=== PATIENT | male | born 1930 | race Caucasian/White ===

== ENCOUNTER 2018-07-23 11:07 | Inpatient (IN) ==
--- NOTE | 2018-07-23 11:26 | Emergency Department Note ---
ED Disposition Clinical Impression: Muscular deconditioning Disposition: Admitted as Observation Condition on Discharge: Good Referrals: García Carrasquillo MD [Primary Care Provider] - - Critical Care Critical Care Time: No Attestation: On , the high probability of a clinically significant, sudden or life threatening deterioration of the following system(s) required my full and direct attention, intervention and personal management. The time I documented below is in addition to time spent performing reported procedures but includes the following listed in this critical care notation. Medical Decision Making - Medical Records Medical records reviewed: Yes: I reviewed the patient's medical records. - [place] Inquiry Pt receiving controlled substance: No Vital Signs: 07/23/18 11:23 07/23/18 11:44 07/23/18 12:43 Temperature 97.9 F 98.3 F Temperature Source Oral Oral Pulse Rate [Left Radial] 72 61 60 Respiratory Rate 22 16 16 Blood Pressure [Right Arm] 182/84 H 171/69 H 174/65 H Blood Pressure Mean [Right Arm] 116 103 101 Blood Pressure Source [Right Arm] Automatic Cuff Automatic Cuff Automatic Cuff Blood Pressure Position [Right Arm] Sitting Supine Supine 02 Sat by Pulse Oximetry 98 98 94 L Oxygen Delivery Method Room Air Room Air Room Air 07/23/18 13:25 07/23/18 14:00 07/23/18 14:40 Temperature 98.9 F Temperature Source Oral Pulse Rate [Left Radial] 61 57 L 58 L Respiratory Rate 18 14 18 Blood Pressure [Right Arm] 168/70 H 160/64 H 164/64 H Blood Pressure Mean [Right Arm] 102 96 97 Blood Pressure Source [Right Arm] Automatic Cuff Automatic Cuff Blood Pressure Position [Right Arm] Supine Supine 02 Sat by Pulse Oximetry 97 95 95 Oxygen Delivery Method Room Air Room Air Room Air 07/23/18 15:17 07/23/18 15:57 07/23/18 16:00 Temperature Temperature Source Pulse Rate [Left Radial] 55 L 59 L 60 Respiratory Rate 18 16 16 Blood Pressure [Right Arm] 173/71 H 169/69 H 171/76 H Blood Pressure Mean [Right Arm] 105 102 107 Blood Pressure Source [Right Arm] Automatic Cuff Automatic Cuff Automatic Cuff Blood Pressure Position [Right Arm] Supine Supine Supine 02 Sat by Pulse Oximetry 96 95 95 Oxygen Delivery Method Room Air Room Air Room Air 07/23/18 16:30 07/23/18 17:00 Temperature Temperature Source Pulse Rate [Left Radial] 57 L 56 L Respiratory Rate 16 14 Blood Pressure [Right Arm] 174/90 H 167/73 H Blood Pressure Mean [Right Arm] 118 104 Blood Pressure Source [Right Arm] Automatic Cuff Blood Pressure Position [Right Arm] Supine 02 Sat by Pulse Oximetry 96 96 Oxygen Delivery Method Room Air Room Air - Lab Data Lab Results 07/23/18 11:15: WBC 11.4 H, RBC 2.61 L, Hgb 8.1 L, Hct 24.9 L, MCV 95.2 H, MCH 31.2, MCHC 32.8, RDW 15.9, Plt Count 254, MPV 8.1, Neut % (Auto) 88.7 H, Lymph % (Auto) 7.0 L, [place] % (Auto) 3.8, Eos % (Auto) 0.3, Baso % (Auto) 0.3, Neut # (Auto) 10.1 H, Lymph # (Auto) 0.8, [place] # (Auto) 0.4, Eos # (Auto) 0.0, Baso # (Auto) 0.0, Total Counted 100, Neutrophils % (Manual) 92 H, Lymphocytes % (Manual) 6 L, Monocytes % (Manual) 2, Platelet Estimate Normal, Hypochromasia 1+ 07/23/18 11:15: Sodium 137, Potassium 3.5, Chloride 99, Carbon Dioxide 24, Anion Gap 17.5 H, BUN 80 H, Creatinine 3.16 H, Estimated Creat Clear 23, Estimated GFR 19 L*, Est GFR ( Amer) 23 L, Glucose 219 H, Calcium 8.4 L, Total Bilirubin 1.0, AST 23, ALT 24, Alkaline Phosphatase 97, Total Protein 6.9, Albumin 3.0 L, Globulin 3.9 H, Albumin/Globulin Ratio 0.8 L Result diagrams: 07/23/18 11:15 07/23/18 11:15 Orders (Tests/Meds): ORDERS Category Date Time Status Elbow XR left mininum 3 views [XR elbow LT min 3V] Stat Exams 07/23/18 11:30 Taken - Radiology Data #1 Image(s): Elbow, Hand, Pelvis Image Reviewed: Yes I discussed the image results w/the radiologist Medical Decision Narrative: pt unable to use his walker due to deconditioning and general weakness, admit d/w Dr Rizvi, hx chronic anemia and 8.1 hgb unchanged from previous, renal insufficiency also near pt usual General Adult HPI - General Chief complaint: Fall Stated complaint: low blood count Time Seen by Provider: 07/23/18 11:22 Source of Information: Patient, Significant Other - History of Present Illness HPI narrative: pt tripped and fell today at home, superficial skin tear left hand and elbow, no loc, no neck pain, not dizzy, pt denies any pain and refuses pain med, hx anemia and transfusion 2 weeks ago, hgb 8.1 last week, no blood in stool, hx atrial fib, pt progressively more difficulty ambulating and the family does not feel they can manage him at home any longer - Related Data Home Medications Medication Instructions Recorded Confirmed Aspirin [Aspirin 81mg EC Tab] 81 mg PO DAILY 03/20/18 07/23/18 Calcium Polycarbophil 625 mg PO TID 03/20/18 07/23/18 Cholecalciferol (Vitamin D3) 2,000 unit PO DAILY 03/20/18 07/23/18 [Vitamin D3 1,000 Unit Tab] Cyanocobalamin (Vitamin B-12) 100 mcg PO DAILY 03/20/18 07/23/18 [Vitamin B-12] Ferrous Sulfate [Ferrous Sulfate 325 mg PO DAILY 03/20/18 07/23/18 325mg Tablet] Flaxseed Oil 1,000 mg PO DAILY 03/20/18 07/23/18 Fluticasone Propionate [Flonase 2 spr NS BID 03/20/18 07/23/18 50mcg nasal spray 16gm] Gabapentin [Gabapentin 100mg Cap] 200 mg PO HS 03/20/18 07/23/18 Guanfacine HCl 0.5 mg PO DAILY 03/20/18 07/23/18 Hydralazine HCl 50 mg PO Q8 03/20/18 07/23/18 Montelukast Sodium [Montelukast 10 mg PO DAILY 03/20/18 07/23/18 10mg Tab] Multivit-Min/FA/Lycopen/Lutein 1 each PO DAILY 03/20/18 07/23/18 [Centrum Silver Tablet] Pantoprazole Sodium [Protonix 40mg 40 mg PO HS 03/20/18 07/23/18 tablet] Polyethylene Glycol 3350 [Miralax 17 gm PO DAILY 03/20/18 07/23/18 17gm Packet] Rosuvastatin Calcium [Crestor] 5 mg PO HS 03/20/18 07/23/18 Tamsulosin HCl [Flomax 0.4mg 0.4 mg PO DAILY 03/20/18 07/23/18 capsule] Torsemide [Demadex] 20 mg PO DAILY 03/20/18 07/23/18 glipiZIDE [Glipizide ER] 2.5 mg PO DAILY 03/20/18 07/23/18 Allergies Allergy/AdvReac Type Severity Reaction Status Date / Time lisinopril Allergy Swelling Verified 03/20/18 08:44 of Lip/Tongue/Throat [facility] History - Hepatitis A Screen Attestation statement:: This patient has been screened for Hepatitis A risk factors. ROS Obtained: Yes Systems reviewed as appropriate & no additional complaints - Constitutional Constitutional: Denies fever(s) - Eyes Eyes: Denies change in vision - ENT Ears, Nose, Mouth, and Throat: Denies neck pain, Denies nose pain - Cardiovascular Cardiovascular: Denies chest pain - Respiratory Respiratory: No dyspnea - Gastrointestinal Gastrointestingal: Denies: abdominal pain - Musculoskeletal Musculoskeletal: Denies back pain, Denies neck pain, Reports other (ambulates w/ walker) - Integumentary/Breasts Skin/Breast: Reports wounds - Neurologic Neurologic: Denies dizziness, Denies focal weakness, Reports frequent falls, Denies headache(s), Denies syncope Physical Exam - General General appearance: alert, in no apparent distress - Head Head exam: atraumatic - Eye Eye exam: Present: normal appearance, PERRL, EOMI - ENT ENT exam: Present: normal exam, mucous membranes moist - Neck Neck exam: Present: normal inspection, full ROM. Absent: tenderness - Chest Chest inspection: Present: normal inspection - Respiratory Respiratory exam: Present: normal lung sounds bilaterally - Cardiovascular Cardiovascular exam: Present: regular rate, normal rhythm - Abdominal Exam Abdominal exam: Present: soft. Absent: distention, tenderness, rebound - Extremities Exam Extremities exam: Present: other (superficial skin tear left elbow and hand, sen and pulses intact, randy, braces on lower legs) - Back Exam Back exam: Absent: tenderness - Neurological Exam Neurological exam: Present: alert, oriented X3 - Psychiatric Psychiatric exam: Present: normal affect, normal mood - Skin Skin exam: Present: other (skin tears V shape 1 to 2 cm)
[2018-07-23 11:43] LABS: Basophils % 0.3 % (0.1-2.0); Eosinophils % 0.3 % (0.1-12.0); Hematocrit 24.9 % (42.0-52.0); Hemoglobin 8.1 g/dL (14.1-18.0); Lymphocytes # 0.8 K/mm3 (0.7-4.5); Mean Corpuscular HGB Conc 32.8 g/dL (31.8-35.4); Mean Corpuscular Hemoglobin 31.2 pg (27.0-31.2); Mean Corpuscular Volume 95.2 fl (80-94); Mean Platelet Volume 8.1 fl (7.4-10.4); Monocytes # 0.4 K/mm3 (0.1-1.0); Monocytes % 3.8 % (1.7-9.3); Neutrophils # 10.1 K/mm3 (1.8-7.8); Neutrophils % 88.7 % (37.0-80.0); Platelet Count 254 K/mm3 (142-424); Red Blood Count 2.61 M/mm3 (4.60-6.20); Red Cell Distribution Width 15.9 % (11.5-17.5); White Blood Count 11.4 K/mm3 (4.8-10.8)
[2018-07-23 12:06] LABS: Albumin/Globulin Ratio 0.8 (1.1-1.8); Anion Gap 17.5 mEq/L (5-15); Calcium 8.4 mg/dL (8.5-10.1); Globulin 3.9 gm/dl (1.3-3.2); Potassium 3.5 mmoL/L (3.5-5.1); Total Protein,Serum 6.9 gm/dL (6.4-8.2)
[2018-07-23 12:11] LABS: Hypochromasia 1+; Lymphocytes % 6 % (10-50); Monocytes % 2 % (2-9); Neutrophils % 92 % (42-76); Total Cells Counted 100
--- NOTE | 2018-07-24 07:39 | Pharmacy Consult Notes ---
[facility] Pharmacy VTE Monitoring - Patient Demographics Admission date: 07/23/18 Report Date: 07/24/18 Time: 07:38 Allergies/Adverse Reactions: Patient Allergies lisinopril Allergy (Verified 03/20/18 08:44) Swelling of Lip/Tongue/Throat Height: 1.65 m Weight: 94.943 kg Patient Problems: Current Active Problems Muscular deconditioning (Acute) - VTE Risk Labs: VTE Related Lab Results Hgb 8.1 g/dL (14.1-18.0) L 07/23/18 11:15 Hct 24.9 % (42.0-52.0) L 07/23/18 11:15 Plt Count 254 K/mm3 (142-424) 07/23/18 11:15 BUN 80 mg/dL (7-18) H 07/23/18 11:15 Creatinine 3.16 mg/dL (0.70-1.30) H 07/23/18 11:15 Estimated Creat Clear 23 mL/min (50-200) 07/23/18 11:15 VTE Score: 4 VTE Risk Level: Low Risk - Prophylaxis VTE Prophylaxis Ordered?: Yes Types of VTE Prophylaxis: TEDS Knee High Location of Applied Device: Bilateral Lower Extremeties - VTE Diagnosis Confirmed Treatment or plan recommended: Continue Current Treatment
--- NOTE | 2018-07-24 08:30 | History & Physical Report ---
*Admission Date: 07/23/18 *Chief complaint: weakness *History of present illness: Mr. Manuel is an 88-year-old male with a history of hypertension, diabetes, hyperlipidemia, intermittent A. fib, GERD, and gastroparesis. He was just recently discharged a few weeks ago from [facility] after an admission for a GI bleed. He states he had an EGD and a colonoscopy and received some blood transfusions at that time. After being discharged, he went to rehab for a week and then went home. He states he was doing well up until July 20 when he began noticing dark stools again. He became very weak and was seen in the office of [facility] on 07/[facility]/18 after a fall at home due to weakness. The patient's hemoglobin was 7.6 in the office and his white blood cell count was elevated. Dr. Carrasquillo spoke with Dr. French who felt the patient needed to go to [facility] for admission. The patient said he went to [facility] emergency room and was told he had pneumonia and was sent home with antibiotics. He states he never received any blood. His weakness continued over the next few days as did his dark stools. He fell again at home yesterday and EMS had to come to his home to get him out of the floor. His home health nurse came to see him after the fall and felt he needed to be taken to the emergency room. His daughter brought him to the ER at [facility] and he was admitted for further evaluation and treatment. [facility] History Medical History: Reports:: Atrial Fibrillation, BPH, Congestive Heart Failure, Diabetes Mellitus Type 2 (with gastroparesis), Gastroesophageal Reflux Disease(GERD), Gastrointestinal Bleed, Hyperlipidemia, Hypertension Denies:: Cancer, Diabetes Mellitus Type 1, Internal Pacemaker, MRSA *Have you ever received a pneumonia vaccine?: Yes *Have you received a flu vaccine this season?: Yes Other Medical History: Reports: Anemia Laterality Cases: Left: Total Knee Replacement, Bilateral: Tonsillectomy Other Surgeries: Yes: Cholecystectomy, Colonoscopy, EGD. No: Pacemaker Amputation: No Fractures: No - *Social History Educational Level: Completed High School Smoking Status: Former smoker # Packs/Day (cigarettes): 1 Alcohol Intake: never *Occupational Status:: other Household Members: children *Travel in the last 8 weeks: None - Psychiatric History Expresses thoughts of harming self/others: None Suicide Plan Description: No Plan Family Hx:: Hypertension Review of Systems - Constitutional Reports lack of energy, Reports weakness, Denies body ache(s), Denies fever(s) - Eyes Denies blurry vision, Denies double vision - ENT Denies nasal congestion, Denies sore throat - *Cardiovascular Reports leg swelling, Denies chest pain, Denies rapid, pounding, or irregular heartbeat - *Respiratory Denies cough, Denies shortness of breath - *Gastrointestinal Reports black, tarry stools, Denies abdominal pain, Denies coffee ground vomit, Denies loose stools, Denies nausea, Denies vomiting - *Genitourinary Reports painful urination, Denies difficulty urinating - *Musculoskeletal Reports muscle weakness, Denies joint pain - *Neurologic Reports frequent falls, Reports weakness, Denies dizziness, Denies localized weakness, Denies headache(s), Denies fainting Meds Home Medications Medication Instructions Recorded Confirmed Type Aspirin [Aspirin 81mg EC Tab] 81 mg PO DAILY 03/20/18 07/24/18 History Cholecalciferol (Vitamin D3) 2,000 unit PO DAILY 03/20/18 07/24/18 History [Vitamin D3 1,000 Unit Tab] Cyanocobalamin (Vitamin B-12) 100 mcg PO DAILY 03/20/18 07/24/18 History [Vitamin B-12] Ferrous Sulfate [Ferrous Sulfate 325 mg PO DAILY 03/20/18 07/24/18 History 325mg Tablet] Flaxseed Oil 1,000 mg PO DAILY 03/20/18 07/24/18 History Fluticasone Propionate [Flonase 2 spr NS BID 03/20/18 07/24/18 History 50mcg nasal spray 16gm] Gabapentin [Gabapentin 100mg Cap] 200 mg PO HS 03/20/18 07/24/18 History Guanfacine HCl 0.5 mg PO DAILY 03/20/18 07/24/18 History Hydralazine HCl 50 mg PO Q8 03/20/18 07/24/18 History Multivit-Min/FA/Lycopen/Lutein 1 each PO DAILY 03/20/18 07/24/18 History [Centrum Silver Tablet] Pantoprazole Sodium [Protonix 40mg 40 mg PO HS 03/20/18 07/24/18 History tablet] Polyethylene Glycol 3350 [Miralax 17 gm PO DAILY 03/20/18 07/24/18 History 17gm Packet] Rosuvastatin Calcium [Crestor] 5 mg PO HS 03/20/18 07/24/18 History Tamsulosin HCl [Flomax 0.4mg 0.4 mg PO DAILY 03/20/18 07/24/18 History capsule] Torsemide [Demadex] 20 mg PO DAILY 03/20/18 07/24/18 History glipiZIDE [Glipizide ER] 2.5 mg PO DAILY 03/20/18 07/24/18 History Allergies Allergy/AdvReac Type Severity Reaction Status Date / Time lisinopril Allergy Swelling Verified 03/20/18 08:44 of Lip/Tongue/Throat Exam Vital signs and Labs for Last 24 Hours: Temp Pulse Resp BP Pulse Ox 98.6 F 60 18 178/71 H 96 07/24/18 08:00 07/24/18 08:00 07/24/18 08:00 07/24/18 08:00 07/24/18 08:00 Laboratory Results - last 24 hr 07/23/18 11:15: WBC 11.4 H, RBC 2.61 L, Hgb 8.1 L, Hct 24.9 L, MCV 95.2 H, MCH 31.2, MCHC 32.8, RDW 15.9, Plt Count 254, MPV 8.1, Neut % (Auto) 88.7 H, Lymph % (Auto) 7.0 L, [place] % (Auto) 3.8, Eos % (Auto) 0.3, Baso % (Auto) 0.3, Neut # (Auto) 10.1 H, Lymph # (Auto) 0.8, [place] # (Auto) 0.4, Eos # (Auto) 0.0, Baso # (Auto) 0.0, Total Counted 100, Neutrophils % (Manual) 92 H, Lymphocytes % (Manual) 6 L, Monocytes % (Manual) 2, Platelet Estimate Normal, Hypochromasia 1+ 07/23/18 11:15: Sodium 137, Potassium 3.5, Chloride 99, Carbon Dioxide 24, Anion Gap 17.5 H, BUN 80 H, Creatinine 3.16 H, Estimated Creat Clear 23, Estimated GFR 19 L*, Est GFR ( Amer) 23 L, Glucose 219 H, Calcium 8.4 L, Total Bilirubin 1.0, AST 23, ALT 24, Alkaline Phosphatase 97, Total Protein 6.9, Albumin 3.0 L, Globulin 3.9 H, Albumin/Globulin Ratio 0.8 L 07/23/18 21:11: POC Glucose 195 H 07/24/18 06:55: POC Glucose 170 H I & O for Last 24 hours: Intake & Output 07/21/18 07/22/18 07/23/18 07/24/18 11:59 11:59 11:59 11:59 Intake Total 760 / 760 Output Total 350 / 350 Balance 410 / 410 Weight 210 lb 209 lb 5 oz - Constitutional no acute distress - *Routine HEENT Exam Head: Present: normocephalic Eye: Present: EOMI, PERRL ENT: Present: mucous membranes dry - *Routine Neck Exam Present: supple. Absent: lymphadenopathy - *Routine Respiratory Exam Present: decreased breath sounds. Absent: rhonchi, wheezes - *Routine Cardiovascular Exam Present: RRR - *Routine Abdominal Exam Present: soft, normoactive bowel sounds. Absent: tenderness - *Routine Extremities Exam Present: edema (2+ bilateral LE edema). Absent: cyanosis, clubbing - *Routine Skin Exam Present: warm, ecchymosis (Multiple on the arms and legs from recent fall). Absent: rash - *Routine Neurological Exam Present: alert, oriented X3 H&P: Result - Impressions Left hand x-ray No good evidence of acute fracture at the hand itself. Arthritic changes multiple regions as detailed intact. (Note-Because of flexion on frontal and oblique views, the Distal Second and Third Fingers not optimally visualized & not well seen. If The patient has focal tenderness and pain in at the distal index and long finger would suggest coned down detail views of these specific fingers) Pelvis xray Osseous pelvis intact no fracture. No acute findings. CXR Left lower lobe pneumonia airspace disease most evident medial left lung base/retrocardiac region Right lung base with minimal atelectasis & possible wispy infiltrate Cardiomegaly. Assessment and Plan (1) Melena Current visit: Yes Status: Acute Category: Medical Code(s): K92.1 - Melena (2) Anemia Current visit: Yes Status: Acute Category: Medical Code(s): D64.9 - Anemia, unspecified (3) Pneumonia Current visit: Yes Status: Acute Category: Medical Code(s): J18.9 - Pneumonia, unspecified organism (4) History of GI bleed Current visit: Yes Status: Chronic Category: Medical Code(s): Z87.19 - Personal history of other diseases of the digestive system (5) Chronic renal impairment, stage 4 (severe) Current visit: Yes Status: Chronic Category: Medical Code(s): N18.4 - Chronic kidney disease, stage 4 (severe) (6) Hypertension Current visit: Yes Status: Chronic Category: Medical Code(s): I10 - Essential (primary) hypertension (7) Hyperlipidemia Current visit: Yes Status: Chronic Category: Medical Code(s): E78.5 - Hyperlipidemia, unspecified (8) Type 2 diabetes mellitus Current visit: Yes Status: Chronic Category: Medical Code(s): E11.9 - Type 2 diabetes mellitus without complications - Assessment and plan all Dx Assessment and Plan for all problems:: Will consult surgery for possible recurrent GI bleed. Patient will need a blood transfusion. He will also need to be started on antibiotics for his pneumonia. We will restart some of his home medications.
--- NOTE | 2018-07-24 10:30 | Consult Report ---
*Admission Date: 07/23/18 *Chief complaint: Gastrointestinal hemorrhage *History of present illness: This is an 88-year-old gentleman with fairly significant anemia over the past few months who has been recently diagnosed with a gastrointestinal hemorrhage after being evaluated at outside facility. He continues to be fairly anemic and "weak". He does report multiple blood transfusions over the past 6 months; however, he states that he only received 2 units during his recent admission at an outside facility. Earlier this month his hemoglobin was found to be 7.6 and he was reevaluated at an outside facility but did not apparently receive blood transfusions. Please see forwarded copy of HPI from admission H&P below. Mr. Manuel is an 88-year-old male with a history of hypertension, diabetes, hyperl ipidemia, intermittent A. fib, GERD, and gastroparesis. He was just recently discharged a few weeks ago from [facility] after an admission for a GI bleed. He states he had an EGD and a colonoscopy and received some blood transfusions at that time. After being discharged, he went to rehab for a week and then went home. He states he was doing well up until July 20 when he began noticing dark stools again. He became very weak and was seen in the office of [facility] on 07/21/18 after a fall at home due to weakness. The patient's hemoglobin was 7.6 in the office and his white blood cell count was elevated. Dr. Carrasquillo spoke with Dr. French who felt the patient needed to go to [facility] for admission. The patient said he went to [facility] emergency room and was told he had pneumonia and was sent home with antibiotics. He states he never received any blood. His weakness continued over the next few days as did his dark stools. He fell again at home yesterday and EMS had to come to his home to get him out of the floor. His home health nurse came to see him after the fall and felt he needed to be taken to the emergency room. His daughter brought him to the ER at [facility] and he was admitted for further evaluation and treatment. Review of Systems - Constitutional Denies chills - Eyes Denies change in vision - ENT Denies bleeding gums - *Cardiovascular Denies chest pain - *Respiratory Denies cough - *Gastrointestinal Denies abdominal pain - *Neurologic Reports frequent falls, Reports weakness, Denies dizziness, Denies localized weakness, Denies headache(s), Denies fainting [facility] History Medical History: Reports:: Atrial Fibrillation, BPH, Congestive Heart Failure, Diabetes Mellitus Type 2 (with gastroparesis), Gastroesophageal Reflux Disease(GERD), Gastrointestinal Bleed, Hyperlipidemia, Hypertension Denies:: Cancer, Diabetes Mellitus Type 1, Internal Pacemaker, MRSA *Have you ever received a pneumonia vaccine?: Yes *Have you received a flu vaccine this season?: Yes Other Medical History: Reports: Anemia Laterality Cases: Left: Total Knee Replacement, Bilateral: Tonsillectomy Other Surgeries: Yes: Cholecystectomy, Colonoscopy, EGD. No: Pacemaker Amputation: No Fractures: No - *Social History Educational Level: Completed High School Smoking Status: Former smoker # Packs/Day (cigarettes): 1 Alcohol Intake: never *Occupational Status:: other Household Members: children *Travel in the last 8 weeks: None - Psychiatric History Expresses thoughts of harming self/others: None Suicide Plan Description: No Plan Family Hx:: Hypertension Meds Home Medications Medication Instructions Recorded Confirmed Type Aspirin [Aspirin 81mg EC Tab] 81 mg PO DAILY 03/20/18 07/24/18 History Cholecalciferol (Vitamin D3) 2,000 unit PO DAILY 03/20/18 07/24/18 History [Vitamin D3 1,000 Unit Tab] Cyanocobalamin (Vitamin B-12) 100 mcg PO DAILY 03/20/18 07/24/18 History [Vitamin B-12] Ferrous Sulfate [Ferrous Sulfate 325 mg PO DAILY 03/20/18 07/24/18 History 325mg Tablet] Flaxseed Oil 1,000 mg PO DAILY 03/20/18 07/24/18 History Fluticasone Propionate [Flonase 2 spr NS BID 03/20/18 07/24/18 History 50mcg nasal spray 16gm] Gabapentin [Gabapentin 100mg Cap] 200 mg PO HS 03/20/18 07/24/18 History Guanfacine HCl 0.5 mg PO DAILY 03/20/18 07/24/18 History Hydralazine HCl 50 mg PO Q8 03/20/18 07/24/18 History Multivit-Min/FA/Lycopen/Lutein 1 each PO DAILY 03/20/18 07/24/18 History [Centrum Silver Tablet] Pantoprazole Sodium [Protonix 40mg 40 mg PO HS 03/20/18 07/24/18 History tablet] Polyethylene Glycol 3350 [Miralax 17 gm PO DAILY 03/20/18 07/24/18 History 17gm Packet] Rosuvastatin Calcium [Crestor] 5 mg PO HS 03/20/18 07/24/18 History Tamsulosin HCl [Flomax 0.4mg 0.4 mg PO DAILY 03/20/18 07/24/18 History capsule] Torsemide [Demadex] 20 mg PO DAILY 03/20/18 07/24/18 History glipiZIDE [Glipizide ER] 2.5 mg PO DAILY 03/20/18 07/24/18 History Allergies Allergy/AdvReac Type Severity Reaction Status Date / Time lisinopril Allergy Swelling Verified 03/20/18 08:44 of Lip/Tongue/Throat Exam Vital signs and Labs for Last 24 Hours: Temp Pulse Resp BP Pulse Ox 98.6 F 60 18 178/71 H 96 07/24/18 08:00 07/24/18 08:00 07/24/18 08:00 07/24/18 08:00 07/24/18 08:00 Laboratory Results - last 24 hr 07/23/18 11:15: WBC 11.4 H, RBC 2.61 L, Hgb 8.1 L, Hct 24.9 L, MCV 95.2 H, MCH 31.2, MCHC 32.8, RDW 15.9, Plt Count 254, MPV 8.1, Neut % (Auto) 88.7 H, Lymph % (Auto) 7.0 L, [place] % (Auto) 3.8, Eos % (Auto) 0.3, Baso % (Auto) 0.3, Neut # (Auto) 10.1 H, Lymph # (Auto) 0.8, [place] # (Auto) 0.4, Eos # (Auto) 0.0, Baso # (Auto) 0.0, Total Counted 100, Neutrophils % (Manual) 92 H, Lymphocytes % (Manual) 6 L, Monocytes % (Manual) 2, Platelet Estimate Normal, Hypochromasia 1+ 07/23/18 11:15: Sodium 137, Potassium 3.5, Chloride 99, Carbon Dioxide 24, Anion Gap 17.5 H, BUN 80 H, Creatinine 3.16 H, Estimated Creat Clear 23, Estimated GFR 19 L*, Est GFR ( Amer) 23 L, Glucose 219 H, Calcium 8.4 L, Total Bi lirubin 1.0, AST 23, ALT 24, Alkaline Phosphatase 97, Total Protein 6.9, Albumin 3.0 L, Globulin 3.9 H, Albumin/Globulin Ratio 0.8 L 07/23/18 21:11: POC Glucose 195 H 07/24/18 06:55: POC Glucose 170 H 07/24/18 09:19: Blood Type O Positive, Antibody Screen Negative, Crossmatch (AHG) See Detail I & O for Last 24 hours: Intake & Output 07/21/18 07/22/18 07/23/18 07/24/18 11:59 11:59 11:59 11:59 Intake Total 760 / 760 Output Total 350 / 350 Balance 410 / 410 Weight 210 lb 209 lb 5 oz - Constitutional no acute distress - *Routine Respiratory Exam Absent: respiratory distress - *Routine Cardiovascular Exam Present: irregular rhythm - *Routine Abdominal Exam Present: soft Results - Labs 07/23/18 11:15 07/23/18 11:15 Laboratory Results - last 24 hr 07/23/18 11:15: WBC 11.4 H, RBC 2.61 L, Hgb 8.1 L, Hct 24.9 L, MCV 95.2 H, MCH 31.2, MCHC 32.8, RDW 15.9, Plt Count 254, MPV 8.1, Neut % (Auto) 88.7 H, Lymph % (Auto) 7.0 L, [place] % (Auto) 3.8, Eos % (Auto) 0.3, Baso % (Auto) 0.3, Neut # (Auto) 10.1 H, Lymph # (Auto) 0.8, [place] # (Auto) 0.4, Eos # (Auto) 0.0, Baso # (Auto) 0.0, Total Counted 100, Neutrophils % (Manual) 92 H, Lymphocytes % (Manual) 6 L, Monocytes % (Manual) 2, Platelet Estimate Normal, Hypochromasia 1+ 07/23/18 11:15: Sodium 137, Potassium 3.5, Chloride 99, Carbon Dioxide 24, Anion Gap 17.5 H, BUN 80 H, Creatinine 3.16 H, Estimated Creat Clear 23, Estimated GFR 19 L*, Est GFR ( Amer) 23 L, Glucose 219 H, Calcium 8.4 L, Total Bilirubin 1.0, AST 23, ALT 24, Alkaline Phosphatase 97, Total Protein 6.9, Albumin 3.0 L, Globulin 3.9 H, Albumin/Globulin Ratio 0.8 L 07/23/18 21:11: POC Glucose 195 H 07/24/18 06:55: POC Glucose 170 H 07/24/18 09:19: Blood Type O Positive, Antibody Screen Negative, Crossmatch (AHG) See Detail Assessment and Plan (1) Melena Current visit: Yes Status: Acute Category: Medical Code(s): K92.1 - Melena (2) Anemia Current visit: Yes Status: Acute Category: Medical Code(s): D64.9 - Anemia, unspecified Per patient and family report...he was treated for colonic bleeding at an outside facility. His hemoglobin is stable when compared to last week (uncertain if he continues to have any blood loss from this recently treated site or additional site). Clear liquids for now (may require urgent intervention) Transfusion as per primary service Serial hemoglobin/hematocrit Hold off on repeat endoscopy for now Unless urgently needed...defer decision of any future EGD/Colonoscopy to his current endoscopist (3) Pneumonia Current visit: Yes Status: Acute Category: Medical Code(s): J18.9 - Pneumonia, unspecified organism (4) History of GI bleed Current visit: Yes Status: Chronic Category: Medical Code(s): Z87.19 - Pe rsonal history of other diseases of the digestive system (5) Chronic renal impairment, stage 4 (severe) Current visit: Yes Status: Chronic Category: Medical Code(s): N18.4 - Chr onic kidney disease, stage 4 (severe) (6) Hypertension Current visit: Yes Status: Chronic Category: Medical Code(s): I10 - Essential (primary) hypertension (7) Hyperlipidemia Current visit: Yes Status: Chronic Category: Medical Code(s): E78.5 - Hyperlipidemia, unspecified (8) Type 2 diabetes mellitus Current visit: Yes Status: Chronic Category: Medical Code(s): E11.9 - Type 2 diabetes mellitus without complications
[2018-07-24 17:16] LABS: Hematocrit 29.2 % (42.0-52.0); Hemoglobin 9.8 g/dL (14.1-18.0)
[2018-07-25 06:52] LABS: Basophils % 0.4 % (0.1-2.0); Eosinophils # 0.1 K/mm3 (0.0-0.4); Eosinophils % 1.4 % (0.1-12.0); Hematocrit 28.9 % (42.0-52.0); Hemoglobin 9.6 g/dL (14.1-18.0); Lymphocytes # 1.2 K/mm3 (0.7-4.5); Lymphocytes % 15.2 % (10-50); Mean Corpuscular HGB Conc 33.1 g/dL (31.8-35.4); Mean Corpuscular Hemoglobin 30.2 pg (27.0-31.2); Mean Corpuscular Volume 91.3 fl (80-94); Monocytes # 0.4 K/mm3 (0.1-1.0); Monocytes % 5.4 % (1.7-9.3); Neutrophils # 6.3 K/mm3 (1.8-7.8); Neutrophils % 77.7 % (37.0-80.0); Platelet Count 206 K/mm3 (142-424); Red Blood Count 3.17 M/mm3 (4.60-6.20); White Blood Count 8.1 K/mm3 (4.8-10.8)
[2018-07-25 07:07] LABS: Anion Gap 15.4 mEq/L (5-15); Calcium 8.3 mg/dL (8.5-10.1); Potassium 3.4 mmoL/L (3.5-5.1)
--- NOTE | 2018-07-25 09:22 | Progress Note ---
Subjective Patient reports: feels better (resting) Exam Vital signs and Labs for Last 24 Hours: Temp Pulse Resp BP Pulse Ox 98.3 F 62 16 176/80 H 95 07/25/18 08:00 07/25/18 08:00 07/25/18 08:00 07/25/18 08:00 07/25/18 08:00 Laboratory Results - last 24 hr 07/24/18 09:19: Blood Type O Positive, Antibody Screen Negative, Crossmatch (AHG) See Detail 07/24/18 12:19: POC Glucose 186 H 07/24/18 17:01: POC Glucose 187 H 07/24/18 17:08: Hgb 9.8 L, Hct 29.2 L 07/24/18 20:48: POC Glucose 191 H 07/25/18 06:09: POC Glucose 171 H 07/25/18 06:29: WBC 8.1 D, RBC 3.17 L, Hgb 9.6 L, Hct 28.9 L, MCV 91.3, MCH 30.2, MCHC 33.1, RDW 17.0, Plt Count 206, MPV 8.0, Neut % (Auto) 77.7, Lymph % (Auto) 15.2, [place] % (Auto) 5.4, Eos % (Auto) 1.4, Baso % (Auto) 0.4, Neut # (Auto) 6.3, Lymph # (Auto) 1.2, [place] # (Auto) 0.4, Eos # (Auto) 0.1, Baso # (Auto) 0.0 07/25/18 06:29: Sodium 141, Potassium 3.4 L, Chloride 103, Carbon Dioxide 26, Anion Gap 15.4 H, BUN 72 H, Creatinine 2.92 H, Estimated Creat Clear 24, Estimated GFR 21 L, Est GFR ( Amer) 25 L, Glucose 157 H, Calcium 8.3 L I & O for Last 24 hours: Intake & Output 07/22/18 07/23/18 07/24/18 07/25/18 11:59 11:59 11:59 11:59 Intake Total 760 / 760 3909 / 3909 Output Total 350 / 350 200 / 200 Balance 410 / 410 3709 / 3709 Weight 210 lb 209 lb 5 oz 209 lb 5.016 oz - Constitutional no acute distress - *Routine Respiratory Exam Absent: respiratory distress - *Routine Abdominal Exam Present: soft. Absent: tenderness Progress Note: A&P (1) Melena Status: Acute Current Visit: Yes (2) Anemia Status: Acute Assessment and plan: No definitive sign of ongoing hemorrhage. Fair response to 2 unit blood transfusion (slight declining hemoglobin/hematocrit this morning likely somewhat delusional). Continue management as per primary service. Likely discharge home soon with cl ose outpatient follow-up. Current Visit: Yes (3) Pneumonia Status: Acute Current Visit: Yes (4) History of GI bleed Status: Chronic Current Visit: Yes (5) Chronic renal impairment, stage 4 (severe) Status: Chronic Current Visit: Yes (6) Hypertension Status: Chronic Current Visit: Yes (7) Hyperlipidemia Status: Chronic Current Visit: Yes (8) Type 2 diabetes mellitus Status: Chronic Current Visit: Yes
--- NOTE | 2018-07-25 10:20 | Progress Note ---
Internal Medicine - PN: Subj *Date: 07/25/18 *Time: 10:17 Interval history: The patient is resting quite comfortably and is in no distress. He says he slept well last night. He is not short of breath. He is not coughing. Exam Vital signs and Labs for Last 24 Hours: Temp Pulse Resp BP Pulse Ox 98.3 F 62 16 176/80 H 95 07/25/18 08:00 07/25/18 08:00 07/25/18 08:00 07/25/18 08:00 07/25/18 08:00 Laboratory Results - last 24 hr 07/24/18 09:19: Blood Type O Positive, Antibody Screen Negative, Crossmatch (AHG) See Detail 07/24/18 12:19: POC Glucose 186 H 07/24/18 17:01: POC Glucose 187 H 07/24/18 17:08: Hgb 9.8 L, Hct 29.2 L 07/24/18 20:48: POC Glucose 191 H 07/25/18 06:09: POC Glucose 171 H 07/25/18 06:29: WBC 8.1 D, RBC 3.17 L, Hgb 9.6 L, Hct 28.9 L, MCV 91.3, MCH 30.2, MCHC 33.1, RDW 17.0, Plt Count 206, MPV 8.0, Neut % (Auto) 77.7, Lymph % (Auto) 15.2, [place] % (Auto) 5.4, Eos % (Auto) 1.4, Baso % (Auto) 0.4, Neut # (Auto) 6.3, Lymph # (Auto) 1.2, [place] # (Auto) 0.4, Eos # (Auto) 0.1, Baso # (Auto) 0.0 07/25/18 06:29: Sodium 141, Potassium 3.4 L, Chloride 103, Carbon Dioxide 26, Anion Gap 15.4 H, BUN 72 H, Creatinine 2.92 H, Estimated Creat Clear 24, Estimated GFR 21 L, Est GFR ( Amer) 25 L, Glucose 157 H, Calcium 8.3 L Laboratory Tests 07/23/18 07/23/18 07/24/18 11:15 11:15 17:08 WBC 11.4 H Hgb 8.1 L 9.8 L Potassium 3.5 07/25/18 07/25/18 06:29 06:29 WBC 8.1 D Hgb 9.6 L Potassium 3.4 L I & O for Last 24 hours: Intake & Output 07/22/18 07/23/18 07/24/18 07/25/18 11:59 11:59 11:59 11:59 Intake Total 760 / 760 3909 / 3909 Output Total 350 / 350 200 / 200 Balance 410 / 410 3709 / 3709 Weight 210 lb 209 lb 5 oz 209 lb 5.016 oz - Constitutional no acute distress - *Routine Respiratory Exam Present: decreased breath sounds. Absent: respiratory distress - *Routine Cardiovascular Exam Present: RRR - *Routine Extremities Exam Present: edema (2+) - *Routine Neurological Exam Present: alert, oriented X3 Assessment and Plan (1) Melena Current visit: Yes Status: Acute Category: Medical Code(s): K92.1 - Melena (2) Anemia Current visit: Yes Status: Acute Category: Medical Code(s): D64.9 - Anemia, unspecified (3) Pneumonia Current visit: Yes Status: Acute Category: Medical Code(s): J18.9 - Pneumonia, unspecified organism (4) History of GI bleed Current visit: Yes Status: Chronic Category: Medical Code(s): Z87.19 - Personal history of other diseases of the digestive system (5) Chronic renal impairment, stage 4 (severe) Current visit: Yes Status: Chronic Category: Medical Code(s): N18.4 - Chronic kidney disease, stage 4 (severe) (6) Hypertension Current visit: Yes Status: Chronic Category: Medical Code(s): I10 - Essential (primary) hypertension (7) Hyperlipidemia Current visit: Yes Status: Chronic Category: Medical Code(s): E78.5 - Hyperlipidemia, unspecified (8) Type 2 diabetes mellitus Current visit: Yes Status: Chronic Category: Medical Code(s): E11.9 - Type 2 diabetes mellitus without complications - Assessment and plan all Dx Assessment and Plan for all problems:: We will continue present regimen. I have discussed the case today with Dr. Wu. It is reassuring that he has had recent endoscopy. The bleeding is probably more related to the blood thinner.
[2018-07-26 06:33] LABS: Basophils # 0.1 K/mm3 (0-0.2); Basophils % 0.6 % (0.1-2.0); Eosinophils # 0.3 K/mm3 (0.0-0.4); Eosinophils % 3.6 % (0.1-12.0); Hemoglobin 9.3 g/dL (14.1-18.0); Lymphocytes # 1.1 K/mm3 (0.7-4.5); Lymphocytes % 14.7 % (10-50); Mean Corpuscular HGB Conc 33.1 g/dL (31.8-35.4); Mean Corpuscular Hemoglobin 30.2 pg (27.0-31.2); Mean Corpuscular Volume 91.2 fl (80-94); Monocytes # 0.4 K/mm3 (0.1-1.0); Monocytes % 4.8 % (1.7-9.3); Neutrophils # 5.6 K/mm3 (1.8-7.8); Neutrophils % 76.3 % (37.0-80.0); Platelet Count 186 K/mm3 (142-424); Red Blood Count 3.09 M/mm3 (4.60-6.20); Red Cell Distribution Width 16.9 % (11.5-17.5); White Blood Count 7.4 K/mm3 (4.8-10.8)
[2018-07-26 06:34] LABS: Hematocrit 28.2 % (42.0-52.0)
[2018-07-26 06:40] LABS: Anion Gap 15.7 mEq/L (5-15); Calcium 8.3 mg/dL (8.5-10.1); Potassium 3.7 mmoL/L (3.5-5.1)
--- NOTE | 2018-07-26 09:23 | Progress Note ---
Subjective Patient reports: no new complaints (BMs "fairly normal" per NSG) Exam Vital signs and Labs for Last 24 Hours: Temp Pulse Resp BP Pulse Ox 98.0 F 71 16 181/76 H 95 07/26/18 08:00 07/26/18 08:00 07/26/18 08:00 07/26/18 08:00 07/26/18 08:00 Laboratory Results - last 24 hr 07/25/18 11:39: POC Glucose 206 H 07/25/18 16:58: POC Glucose 191 H 07/25/18 20:12: POC Glucose 200 H 07/26/18 05:53: POC Glucose 144 H 07/26/18 06:26: WBC 7.4, RBC 3.09 L, Hgb 9.3 L, Hct 28.2 L, MCV 91.2, MCH 30.2, MCHC 33.1, RDW 16.9, Plt Count 186, MPV 9.0, Neut % (Auto) 76.3, Lymph % (Auto) 14.7, [place] % (Auto) 4.8, Eos % (Auto) 3.6, Baso % (Auto) 0.6, Neut # (Auto) 5.6, Lymph # (Auto) 1.1, [place] # (Auto) 0.4, Eos # (Auto) 0.3, Baso # (Auto) 0.1 07/26/18 06:26: Sodium 140, Potassium 3.7, Chloride 104, Carbon Dioxide 24, Anion Gap 15.7 H, BUN 64 H, Creatinine 2.58 H, Estimated Creat Clear 28, Estimated GFR 24 L, Est GFR ( Amer) 29 L, Glucose 150 H, Calcium 8.3 L I & O for Last 24 hours: Intake & Output 07/23/18 07/24/18 07/25/18 07/26/18 11:59 11:59 11:59 11:59 Intake Total 760 / 760 3909 / 3909 3039 / 3039 Output Total 350 / 350 200 / 200 Balance 410 / 410 3709 / 3709 3039 / 3039 Weight 210 lb 209 lb 5 oz 209 lb 5.016 oz - Constitutional no acute distress - *Routine Abdominal Exam Present: soft. Absent: tenderness Progress Note: A&P (1) Melena Status: Acute Current Visit: Yes (2) Anemia Status: Acute Current Visit: Yes (3) Pneumonia Status: Acute Current Visit: Yes (4) History of GI bleed Status: Chronic Current Visit: Yes (5) Chronic renal impairment, stage 4 (severe) Status: Chronic Current Visit: Yes (6) Hypertension Status: Chronic Current Visit: Yes (7) Hyperlipidemia Status: Chronic Current Visit: Yes (8) Type 2 diabetes mellitus Status: Chronic Current Visit: Yes (9) Arteriovenous malformation of colon with hemorrhage Status: Acute Assessment and plan: No sign of definite ongoing blood loss. Recent colonoscopy (x2) revealed AVMs of the right colon and some colon polyps. A combination of clip placement and argon plasma coagulation utilized for hemostasis. Recommendations as per the endoscopist included evaluation by interventional radiology if recurrent bleeding noted. Slowly advance diet No need for acute intervention Consider immediate transfer to facility with interventional radiology capabilities for hemostasis if recurrent bleeding noted Current Visit: Yes
--- NOTE | 2018-07-26 16:02 | Progress Note ---
Internal Medicine - PN: Subj *Date: 07/26/18 *Time: 16:00 Interval history: He seems quite good today though the nurse has reported increased somnolence. At the time I see him he is quite alert and talking with his daughter. She reports that he gets short of breath with exertion and has some wheezing. He is in no acute distress at time of exam Exam Vital signs and Labs for Last 24 Hours: Temp Pulse Resp BP Pulse Ox 97.8 F 60 17 155/77 H 97 07/26/18 12:00 07/26/18 12:00 07/26/18 12:00 07/26/18 12:00 07/26/18 12:00 Laboratory Results - last 24 hr 07/25/18 11:39: POC Glucose 206 H 07/25/18 16:58: POC Glucose 191 H 07/25/18 20:12: POC Glucose 200 H 07/26/18 05:53: POC Glucose 144 H 07/26/18 06:26: WBC 7.4, RBC 3.09 L, Hgb 9.3 L, Hct 28.2 L, MCV 91.2, MCH 30.2, MCHC 33.1, RDW 16.9, Plt Count 186, MPV 9.0, Neut % (Auto) 76.3, Lymph % (Auto) 14.7, [place] % (Auto) 4.8, Eos % (Auto) 3.6, Baso % (Auto) 0.6, Neut # (Auto) 5.6, Lymph # (Auto) 1.1, [place] # (Auto) 0.4, Eos # (Auto) 0.3, Baso # (Auto) 0.1 07/26/18 06:26: Sodium 140, Potassium 3.7, Chloride 104, Carbon Dioxide 24, Anion Gap 15.7 H, BUN 64 H, Creatinine 2.58 H, Estimated Creat Clear 28, Estimated GFR 24 L, Est GFR ( Amer) 29 L, Glucose 150 H, Calcium 8.3 L 07/26/18 11:39: POC Glucose 201 H I & O for Last 24 hours: Intake & Output 07/24/18 07/25/18 07/26/18 07/27/18 11:59 11:59 11:59 11:59 Intake Total 760 / 760 3909 / 3909 3039 / 3039 1020 / 1020 Output Total 350 / 350 200 / 200 Balance 410 / 410 3709 / 3709 303 / 303 1020 / 1020 Weight 209 lb 5 oz 209 lb 5.016 oz - Constitutional no acute distress - *Routine HEENT Exam Head: Present: normocephalic Eye: Present: PERRL ENT: Present: mucous membranes moist - *Routine Respiratory Exam Present: decreased breath sounds, rhonchi (Right base) - *Routine Cardiovascular Exam Present: irregularly irregular - *Routine Abdominal Exam Present: soft. Absent: tenderness - *Routine Extremities Exam Absent: edema (SAVAGE stockings) - *Routine Neurological Exam Present: alert, oriented X3 Assessment and Plan (1) Melena Current visit: Yes Status: Acute Category: Medical Code(s): K92.1 - Melena (2) Anemia Current visit: Yes Status: Acute Category: Medical Code(s): D64.9 - Anemia, unspecified (3) Pneumonia Current visit: Yes Status: Acute Category: Medical Code(s): J18.9 - Pneumonia, unspecified organism (4) History of GI bleed Current visit: Yes Status: Chronic Category: Medical Code(s): Z87.19 - Personal history of other diseases of the digestive system (5) Chronic renal impairment, stage 4 (severe) Current visit: Yes Status: Chronic Category: Medical Code(s): N18.4 - Chronic kidney disease, stage 4 (severe) (6) Hypertension Current visit: Yes Status: Chronic Category: Medical Code(s): I10 - Essential (primary) hypertension (7) Hyperlipidemia Current visit: Yes Status: Chronic Category: Medical Code(s): E78.5 - Hyperlipidemia, unspecified (8) Type 2 diabetes mellitus Current visit: Yes Status: Chronic Category: Medical Code(s): E11.9 - Type 2 diabetes mellitus without complications (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 We have to figure out anticoagulation on discharge
--- NOTE | 2018-07-27 07:29 | Progress Note ---
Internal Medicine - PN: Subj *Date: 07/27/18 *Time: 07:28 Exam Vital signs and Labs for Last 24 Hours: Temp Pulse Resp BP Pulse Ox 99.1 F 70 20 171/79 H 93 L 07/27/18 04:00 07/27/18 04:00 07/27/18 04:00 07/27/18 04:00 07/27/18 04:00 Laboratory Results - last 24 hr 07/26/18 11:39: POC Glucose 201 H 07/26/18 17:00: POC Glucose 180 H 07/26/18 20:21: POC Glucose 237 H 07/27/18 06:03: POC Glucose 149 H I & O for Last 24 hours: Intake & Output 07/24/18 07/25/18 07/26/18 07/27/18 23:59 23:59 23:59 23:59 Intake Total 2630 / 2630 3976 / 3976 3869 / 3869 563 / 563 Output Total 550 / 550 Balance 2080 / 2080 3976 / 3976 3869 / 3869 563 / 563 Weight 94.943 kg Microbiology Reports for the Last 24 Hours: Microbiology 07/27/18 05:35 Sputum - Expectorated Sputum Gram Stain - Final 07/27/18 05:35 Sputum - Expectorated Sputum Sputum Culture - Final Assessment and Plan (1) Melena Current visit: Yes Status: Acute Category: Medical Code(s): K92.1 - Melena (2) Anemia Current visit: Yes Status: Acute Category: Medical Code(s): D64.9 - Anem ia, unspecified (3) Pneumonia Current visit: Yes Status: Acute Category: Medical Code(s): J18.9 - Pneumonia, unspecified organism (4) History of GI bleed Current visit: Yes Status: Chronic Category: Medical Code(s): Z87.19 - Personal history of other diseases of the digestive system (5) Chronic renal impairment, stage 4 (severe) Current visit: Yes Status: Chronic Category: Medical Code(s): N18.4 - Chronic kidney disease, stage 4 (severe) (6) Hypertension Current visit: Yes Status: Chronic Category: Medical Code(s): I10 - Essential (primary) hypertension (7) Hyperlipidemia Current visit: Yes Status: Chronic Category: Medical Code(s): E78.5 - Hyperlipidemia, unspecified (8) Type 2 diabetes mellitus Current visit: Yes Status: Chronic Category: Medical Code(s): E11.9 - Type 2 diabetes mellitus without complications (9) Arteriovenous malformation of colon with hemorrhage Current visit: Yes Status: Acute Category: Medical Code(s): K55.21 - Angiodysplasia of colon with hemorrhage The patient's infection will respond to the chosen ABx?: Yes Is the patient receiving the right drug, dose, and route?: Yes Could a more targeted ABx be ordered?: No
--- NOTE | 2018-07-27 08:36 | Progress Note ---
Internal Medicine - PN: Subj Interval history: Patient states that he feels better today because he was able to sleep last night. Continues to be somewhat short of breath and has a cough. He is able to produce sputum and specimen was obtained though needs to be recollected. He denies chest pain. He is eating without difficulty and enjoys his full liquid diet. Sat up in a chair yesterday and is asking about physical therapy. Blood pressure has been elevated. Chest x-ray is worse. Has been followed by Dr. Wu who feels that he is stable and hemoglobin may be dilutional. See note. Exam Vital signs and Labs for Last 24 Hours: Temp Pulse Resp BP Pulse Ox 97.5 F L 71 20 184/73 H 94 L 07/27/18 08:00 07/27/18 08:00 07/27/18 08:00 07/27/18 08:00 07/27/18 08:00 Laboratory Results - last 24 hr 07/26/18 11:39: POC Glucose 201 H 07/26/18 17:00: POC Glucose 180 H 07/26/18 20:21: POC Glucose 237 H 07/27/18 06:03: POC Glucose 149 H I & O for Last 24 hours: Intake & Output 07/24/18 07/25/18 07/26/18 07/27/18 11:59 11:59 11:59 11:59 Intake Total 760 / 760 3909 / 3909 3039 / 3039 4050 / 4050 Output Total 350 / 350 200 / 200 Balance 410 / 410 3709 / 3709 3039 / 3039 4050 / 4050 Weight 209 lb 5 oz 209 lb 5.016 oz Microbiology Reports for the Last 24 Hours: Microbiology 07/27/18 05:35 Sputum - Expectorated Sputum Gram Stain - Final 07/27/18 05:35 Sputum - Expectorated Sputum Sputum Culture - Final Radiology Reports for the Last 24 Hours: Repeat chest x-ray 07/26/2017 IMPRESSION. Bilateral pleural effusion & bibasilar airspace disease with findings most pronounced at the left base-where Findings obscure the left hemidiaphragm Left pleural effusion is clearly evident left lower lobe consolidation.- LLL Airspace disease, mainly reflecting atelectasis with suspect infiltrate associated.. Volume loss evident . Only Minimal findings at the right lung base Minimal hazy infiltrate medial right lung base; in addition to small right pleural effusion.. Mild cardiomegaly. Suspect mild vascular congestion present superimposed upon chronic changes. - Constitutional no acute distress Comments: Awake and alert and sitting up in the bed feeding self breakfast. - *Routine Respiratory Exam Comments: Expiratory wheezing audible anteriorly and posteriorly - *Routine Cardiovascular Exam Present: RRR - *Routine Abdominal Exam Present: soft, normoactive bowel sounds. Absent: tenderness - *Routine Extremities Exam Comments: [facility] house on - *Routine Neurological Exam Present: alert, oriented X3 Assessment and Plan (1) Melena Current visit: Yes Status: Acute Category: Medical Code(s): K92.1 - Melena (2) Anemia Current visit: Yes Status: Acute Category: Medical Code(s): D64.9 - Anemia, unspecified (3) Pneumonia Current visit: Yes Status: Acute Category: Medical Code(s): J18.9 - Pneumonia, unspecified organism (4) History of GI bleed Current visit: Yes Status: Chronic Category: Medical Code(s): Z87.19 - Personal history of other diseases of the digestive system (5) Chronic renal impairment, stage 4 (severe) Current visit: Yes Status: Chronic Category: Medical Code(s): N18.4 - Chronic kidney disease, stage 4 (severe) (6) Hypertension Current visit: Yes Status: Chronic Category: Medical Code(s): I10 - Essential (primary) hypertension (7) Hyperlipidemia Current visit: Yes Status: Chronic Category: Medical Code(s): E78.5 - Hyperlipidemia, unspecified (8) Type 2 diabetes mellitus Current visit: Yes Status: Chronic Category: Medical Code(s): E11.9 - Type 2 diabetes mellitus without complications (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 Will increase amlodipine to 5 mg daily. Will give 40 of Lasix IV due to new bilateral pleural effusions and elevated blood pressure. Physical therapy consulted. Care management note reviewed and apparently looking for long-term long term placement at [facility].. CBC and BMP ordered for this a.m. With chronic renal failure will need to monitor renal function. We need to re-collect sputum. Will advance diet as well.
--- NOTE | 2018-07-27 08:46 | Progress Note ---
Subjective Patient reports: no new complaints, feels better Exam Vital signs and Labs for Last 24 Hours: Temp Pulse Resp BP Pulse Ox 97.5 F L 71 20 184/73 H 94 L 07/27/18 08:00 07/27/18 08:00 07/27/18 08:00 07/27/18 08:00 07/27/18 08:00 Laboratory Results - last 24 hr 07/26/18 11:39: POC Glucose 201 H 07/26/18 17:00: POC Glucose 180 H 07/26/18 20:21: POC Glucose 237 H 07/27/18 06:03: POC Glucose 149 H I & O for Last 24 hours: Intake & Output 07/24/18 07/25/18 07/26/18 07/27/18 11:59 11:59 11:59 11:59 Intake Total 760 / 760 3909 / 3909 3039 / 3039 4050 / 4050 Output Total 350 / 350 200 / 200 Balance 410 / 410 3709 / 3709 3039 / 3039 4050 / 4050 Weight 209 lb 5 oz 209 lb 5.016 oz Microbiology Reports for the Last 24 Hours: Microbiology 07/27/18 05:35 Sputum - Expectorated Sputum Gram Stain - Final 07/27/18 05:35 Sputum - Expectorated Sputum Sputum Culture - Final - Constitutional no acute distress - *Routine Abdominal Exam Present: soft. 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
[2018-07-27 09:12] LABS: Basophils % 0.4 % (0.1-2.0); Eosinophils # 0.2 K/mm3 (0.0-0.4); Eosinophils % 2.5 % (0.1-12.0); Hematocrit 28.1 % (42.0-52.0); Hemoglobin 9.4 g/dL (14.1-18.0); Lymphocytes # 0.8 K/mm3 (0.7-4.5); Lymphocytes % 10.2 % (10-50); Mean Corpuscular HGB Conc 33.5 g/dL (31.8-35.4); Mean Corpuscular Hemoglobin 30.4 pg (27.0-31.2); Mean Corpuscular Volume 90.8 fl (80-94); Mean Platelet Volume 8.4 fl (7.4-10.4); Monocytes # 0.5 K/mm3 (0.1-1.0); Monocytes % 5.9 % (1.7-9.3); Neutrophils # 6.4 K/mm3 (1.8-7.8); Platelet Count 187 K/mm3 (142-424); Red Blood Count 3.09 M/mm3 (4.60-6.20); Red Cell Distribution Width 16.4 % (11.5-17.5); White Blood Count 7.9 K/mm3 (4.8-10.8)
[2018-07-27 09:18] LABS: Anion Gap 16.1 mEq/L (5-15); Potassium 4.1 mmoL/L (3.5-5.1)
[2018-07-28 07:17] LABS: Basophils % 0.4 % (0.1-2.0); Eosinophils # 0.3 K/mm3 (0.0-0.4); Eosinophils % 4.6 % (0.1-12.0); Hematocrit 28.6 % (42.0-52.0); Hemoglobin 9.3 g/dL (14.1-18.0); Lymphocytes # 1.1 K/mm3 (0.7-4.5); Lymphocytes % 16.3 % (10-50); Mean Corpuscular HGB Conc 32.6 g/dL (31.8-35.4); Mean Corpuscular Hemoglobin 29.8 pg (27.0-31.2); Mean Corpuscular Volume 91.3 fl (80-94); Mean Platelet Volume 8.8 fl (7.4-10.4); Monocytes # 0.4 K/mm3 (0.1-1.0); Monocytes % 5.6 % (1.7-9.3); Neutrophils # 4.8 K/mm3 (1.8-7.8); Neutrophils % 72.9 % (37.0-80.0); Platelet Count 192 K/mm3 (142-424); Red Blood Count 3.14 M/mm3 (4.60-6.20); Red Cell Distribution Width 16.4 % (11.5-17.5); White Blood Count 6.6 K/mm3 (4.8-10.8)
[2018-07-28 07:35] LABS: Anion Gap 15.3 mEq/L (5-15); Calcium 8.3 mg/dL (8.5-10.1); Potassium 4.3 mmoL/L (3.5-5.1)
--- NOTE | 2018-07-28 08:15 | Progress Note ---
Internal Medicine - PN: Subj Interval history: States he did not sleep well last night. His mind was too busy. He is enjoying his food and eating without problems. Bowels are moving daily. He voided numerous times yesterday. Output numbers not available. States physical therapy was hard yesterday because he has not been out of bed for about a week. He was able to stand and walk to the chair with a walker. He did sit up for a while. He denies chest pain and shortness of breath. Cough is better. Patient is to have CT of the chest this morning. Selected Entries 07/26/18 12:00 07/26/18 16:00 07/26/18 20:00 Blood Pressure [Left Arm] 155/77 H 166/82 H 196/79 H 07/27/18 04:00 Blood Pressure [Left Arm] 171/79 H Laboratory Tests 07/27/18 07/27/18 07/28/18 08:55 08:55 07:10 WBC 7.9 6.6 Hgb 9.4 L 9.3 L Hct 28.1 L 28.6 L Sodium Potassium Chloride Carbon Dioxide Anion Gap BUN 56 H Creatinine 2.59 H Estimated Creat Clear Estimated GFR Est GFR ( Amer) 07/28/18 07:10 WBC Hgb Hct Sodium 136 Potassium 4.3 Chloride 102 Carbon Dioxide 23 Anion Gap 15.3 H BUN 59 H Creatinine 2.71 H Estimated Creat Clear 29 Estimated GFR 22 L Est GFR ( Amer) 27 L Exam Vital signs and Labs for Last 24 Hours: Temp Pulse Resp BP Pulse Ox 98.3 F 61 18 158/76 H 96 07/28/18 07:38 07/28/18 07:38 07/28/18 07:38 07/28/18 07:38 07/28/18 07:38 Laboratory Results - last 24 hr 07/27/18 08:55: WBC 7.9, RBC 3.09 L, Hgb 9.4 L, Hct 28.1 L, MCV 90.8, MCH 30.4, MCHC 33.5, RDW 16.4, Plt Count 187, MPV 8.4, Neut % (Auto) 81.0 H, Lymph % (Auto) 10.2, [place] % (Auto) 5.9, Eos % (Auto) 2.5, Baso % (Auto) 0.4, Neut # (Auto) 6.4, Lymph # (Auto) 0.8, [place] # (Auto) 0.5, Eos # (Auto) 0.2, Baso # (Auto) 0.0 07/27/18 08:55: Sodium 136, Potassium 4.1, Chloride 102, Carbon Dioxide 22, Anion Gap 16.1 H, BUN 56 H, Creatinine 2.59 H, Estimated Creat Clear 27, Estima savage GFR 24 L, Est GFR ( Amer) 29 L, Glucose 223 H, Calcium 8.0 L 07/27/18 11:16: POC Glucose 222 H 07/27/18 15:56: POC Glucose 176 H 07/27/18 20:15: POC Glucose 186 H 07/28/18 05:18: POC Glucose 153 H 07/28/18 07:10: WBC 6.6, RBC 3.14 L, Hgb 9.3 L, Hct 28.6 L, MCV 91.3, MCH 29.8, MCHC 32.6, RDW 16.4, Plt Count 192, MPV 8.8, Neut % (Auto) 72.9, Lymph % (Auto) 16.3, [place] % (Auto) 5.6, Eos % (Auto) 4.6, Baso % (Auto) 0.4, Neut # (Auto) 4.8, Lymph # (Auto) 1.1, [place] # (Auto) 0.4, Eos # (Auto) 0.3, Baso # (Auto) 0.0 07/28/18 07:10: Sodium 136, Potassium 4.3, Chloride 102, Carbon Dioxide 23, Anion Gap 15.3 H, BUN 59 H, Creatinine 2.71 H, Estimated Creat Clear 29, Estimated GFR 22 L, Est GFR ( Amer) 27 L, Glucose 147 H D, Calcium 8.3 L I & O for Last 24 hours: Intake & Output 07/25/18 07/26/18 07/27/18 07/28/18 11:59 11:59 11:59 11:59 Intake Total 3909 / 3909 3039 / 3039 4050 / 4050 2254 / 2254 Output Total 200 / 200 Balance 3709 / 3709 3039 / 3039 4050 / 4050 2254 / 2254 Weight 209 lb 5.016 oz 229 lb 3 oz Microbiology Reports for the Last 24 Hours: Microbiology 07/27/18 05:35 Sputum - Expectorated Sputum Gram Stain - Final 07/27/18 05:35 Sputum - Expectorated Sputum Sputum Culture - Final - Constitutional no acute distress Comments: Sitting up in the bed eating his breakfast. Appears comfortable. - *Routine Respiratory Exam Present: CTA bilaterally (Anteriorly and posteriorly. No audible wheezing) - *Routine Cardiovascular Exam Present: RRR - *Routine Abdominal Exam Present: soft, normoactive bowel sounds. Absent: tenderness - *Routine Extremities Exam Comments: [place] house on - *Routine Neurological Exam Present: alert (Oriented) Assessment and Plan (1) Melena Current visit: Yes Status: Acute Category: Medical Code(s): K92.1 - Melena (2) Anemia Current visit: Yes Status: Acute Category: Medical Code(s): D64.9 - Anemia, unspecified (3) Pneumonia Current visit: Yes Status: Acute Category: Medical Code(s): J18.9 - Pneumonia, unspecified organism (4) History of GI bleed Current visit: Yes Status: Chronic Category: Medical Code(s): Z87.19 - Personal history of other diseases of the digestive system (5) Chronic renal impairment, stage 4 (severe) Current visit: Yes Status: Chronic Category: Medical Code(s): N18.4 - Chronic kidney disease, stage 4 (severe) (6) Hypertension Current visit: Yes Status: Chronic Category: Medical Code(s): I10 - Essential (primary) hypertension (7) Hyperlipidemia Current visit: Yes Status: Chronic Category: Medical Code(s): E78.5 - Hyperlipidemia, unspecified (8) Type 2 diabetes mellitus Current visit: Yes Status: Chronic Category: Medical Code(s): E11.9 - Type 2 diabetes mellitus without complications (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 Will have a CT of the chest this a.m. Bed has been obtained at [facility]. Possible discharge later today or tomorrow
--- NOTE | 2018-07-29 08:14 | Progress Note ---
Internal Medicine - PN: Subj *Date: 07/29/18 *Time: 08:11 Interval history: Patient states he is feeling a little bit better today. He still has a cough but is less short of breath. He did sleep better last night. He denies any pain and did eat a good breakfast this morning. Exam Vital signs and Labs for Last 24 Hours: Temp Pulse Resp BP Pulse Ox 97.9 F 74 18 145/65 H 96 07/29/18 08:00 07/29/18 08:00 07/29/18 08:00 07/29/18 08:00 07/29/18 08:00 Laboratory Results - last 24 hr 07/28/18 11:15: POC Glucose 229 H 07/28/18 21:21: POC Glucose 187 H 07/29/18 06:55: POC Glucose 157 H I & O for Last 24 hours: Intake & Output 07/26/18 07/27/18 07/28/18 07/29/18 11:59 11:59 11:59 11:59 Intake Total 3039 / 3039 4050 / 4050 2254 / 2254 840 / 840 Output Total 0 / 0 Balance 3039 / 3039 4050 / 4050 2254 / 2254 840 / 840 Weight 229 lb 3 oz 228 lb 9 oz Radiology Reports for the Last 24 Hours: Chest CT 1. Moderate-sized bilateral pleural effusions with atelectatic changes. 2. Tree-in-bud opacities in the upper lobe centrally suggesting patchy areas of pneumonia. 3. Coronary artery calcification - Constitutional no acute distress - *Routine Respiratory Exam Present: CTA bilaterally - *Routine Cardiovascular Exam Present: RRR - *Routine Abdominal Exam Present: soft, normoactive bowel sounds. Absent: tenderness - *Routine Extremities Exam Present: edema. Absent: cyanosis, clubbing - *Routine Skin Exam Present: warm. Absent: rash - *Routine Neurological Exam Present: alert, oriented X3 Assessment and Plan (1) Melena Current visit: Yes Status: Acute Category: Medical Code(s): K92.1 - Melena (2) Anemia Current visit: Yes Status: Acute Category: Medical Code(s): D64.9 - Anemia, unspecified (3) Pneumonia Current visit: Yes Status: Acute Category: Medical Code(s): J18.9 - Pneumonia, unspecified organism (4) History of GI bleed Current visit: Yes Status: Chronic Category: Medical Code(s): Z87.19 - Personal history of other diseases of the digestive system (5) Chronic renal impairment, stage 4 (severe) Current visit: Yes Status: Chronic Category: Medical Code(s): N18.4 - Chronic kidney disease, stage 4 (severe) (6) Hypertension Current visit: Yes Status: Chronic Category: Medical Code(s): I10 - Essential (primary) hypertension (7) Hyperlipidemia Current visit: Yes Status: Chronic Category: Medical Code(s): E78.5 - Hyperlipidemia, unspecified (8) Type 2 diabetes mellitus Current visit: Yes Status: Chronic Category: Medical Code(s): E11.9 - Type 2 diabetes mellitus without complications (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 Possible discharge to the longterm today. Will discuss with Dr. Carrasquillo.
--- NOTE | 2018-07-29 08:59 | Discharge Summary ---
General - General Admission date:: 07/23/18 Discharge date: 07/29/18 HPI HPI: Mr. Manuel is an 88-year-old male with a history of hypertension, diabetes, hyperlipidemia, intermittent A. fib, GERD, and gastroparesis. He was just recently discharged a few weeks ago from [facility] after an admission for a GI bleed. He states he had an EGD and a colonoscopy and received some blood transfusions at that time. After being discharged, he went to rehab for a week and then went home. He states he was doing well up until July 20 when he began noticing dark stools again. He became very weak and was seen in the office of [facility] on 07/21/18 after a fall at home due to weakness. The patient's hemoglobin was 7.6 in the office and his white blood cell count was elevated. Dr. Carrasquillo spoke with Dr. French who felt the patient needed to go to [facility] for admission. The patient said he went to [facility] emergency room and was told he had pneumonia and was sent home with antibiotics. He states he never received any blood. His weakness continued over the next few days as did his dark stools. He fell again at home yesterday and EMS had to come to his home to get him out of the floor. His home health nu rse came to see him after the fall and felt he needed to be taken to the emergency room. His daughter brought him to the ER at [facility] and he was admitted for further evaluation and treatment. Hospital Course Hospital Course: The patient had x-rays of the left hand, pelvis, elbow, and chest. There were no fractures noted but his chest x-ray did show a pneumonia in the left lower lobe and right lung base. It also showed a left pleural effusion. Patient's H&H was low therefore a blood transfusion was ordered and surgery was consulted. He was started on antibiotics for his pneumonia and most of his home medications were resumed. He was seen by Dr. Garcia who wanted to hold off on any endoscopy and transfuse the patient. He also started him on clear liquids. It was felt his bleeding may have been related to his blood thinner. He did have an elevated blood pressure while in the hospital and his hydralazine was increased to 50 mg 4 times a day and amlodipine 2.5 mg was added daily. The patient did not have any definite ongoing blood loss and Dr. Garcia felt he should see his endoscopist and be evaluated by interventional radiology if recurrent bleeding was noted. He felt his diet could be advanced. The patient had a repeat chest x-ray showing bilateral pleural effusions with a left lower lobe pneumonia. They felt he did have some mild vascular congestion. He had increased wheezing, therefore he was started on IV Lasix, duo nebs, and his carvedilol was increased as was his amlodipine d/t elevated BP. The patient was able to work with physical therapy even though it was difficult. He did have a CT of the chest which showed bilateral pleural effusions and tree-in-bud opacities in the upper lobes suggesting patchy areas of pneumonia. Care management was consulted for placement in a bed was found for the patient at [facility]. He was stable to be discharged to [place] and will be continued antibiotics for his pneumonia. Objective Vital signs: Temp Pulse Resp BP Pulse Ox 97.9 F 74 18 145/65 H 96 07/29/18 08:00 07/29/18 08:00 07/29/18 08:00 07/29/18 08:00 07/29/18 08:21 Narrative: - Constitutional no acute distress - *Routine HEENT Exam Head: Present: normocephalic Eye: Present: EOMI, PERRL ENT: Present: mucous membranes dry - *Routine Neck Exam Present: supple. Absent: lymphadenopathy - *Routine Respiratory Exam Present: decreased breath sounds. Absent: rhonchi, wheezes - *Routine Cardiovascular Exam Present: RRR - *Routine Abdominal Exam Present: soft, normoactive bowel sounds. Absent: tenderness - *Routine Extremities Exam Present: edema (2+ bilateral LE edema). Absent: cyanosis, clubbing - *Routine Skin Exam Present: warm, ecchymosis (Multiple on the arms and legs from recent fall). 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 Status: Acute (10) Bilateral pleural effusion Status: Acute Discharge Plan - Patient Discharge Instructions Patient Instructions: Anemia, DI for Pneumonia -- Adult, How to Prevent Falls - Follow up Plan Follow up with: García Carrasquillo MD [Primary Care Provider] - Disposition: [facility] Home Medications: Home Medications Medication Instructions Recorded Confirmed Type Aspirin [Aspirin 81mg EC Tab] 81 mg PO DAILY 03/20/18 07/24/18 History Cholecalciferol (Vitamin D3) 2,000 unit PO DAILY 03/20/18 07/24/18 History [Vitamin D3 1,000 Unit Tab] Cyanocobalamin (Vitamin B-12) 100 mcg PO DAILY 03/20/18 07/24/18 History [Vitamin B-12] Flaxseed Oil 1,000 mg PO DAILY 03/20/18 07/24/18 History Fluticasone Propionate [Flonase 2 spr NS BID 03/20/18 07/24/18 History 50mcg nasal spray 16gm] Gabapentin [Gabapentin 100mg Cap] 200 mg PO HS 03/20/18 07/24/18 History Guanfacine HCl 0.5 mg PO DAILY 03/20/18 07/24/18 History Hydralazine HCl 100 mg PO TID 03/20/18 07/24/18 History Multivit-Min/FA/Lycopen/Lutein 1 each PO DAILY 03/20/18 07/24/18 History [Centrum Silver Tablet] Pantoprazole Sodium [Protonix 40mg 40 mg PO HS 03/20/18 07/24/18 History tablet] Polyethylene Glycol 3350 [Miralax 17 gm PO DAILY 03/20/18 07/24/18 History 17gm Packet] Rosuvastatin Calcium [Crestor] 5 mg PO HS 03/20/18 07/24/18 History Tamsulosin HCl [Flomax 0.4mg 0.4 mg PO DAILY 03/20/18 07/24/18 History capsule] glipiZIDE [Glipizide ER] 5 mg PO DAILY 03/20/18 07/24/18 History Calcium Acetate [Phoslo 667mg 1,334 mg PO TIDWM 07/24/18 07/24/18 History capsule] metOLazone [metOLazone 2.5mg 2.5 mg PO DAILY 07/24/18 07/24/18 History Tablet] Amlodipine Besylate [Norvasc 5mg 5 mg PO DAILY #30 tablet 07/30/18 Rx tablet] Carvedilol [Coreg 6.25mg 6.25 mg PO BID #60 tablet 07/30/18 Rx Tablet] Cefdinir [Omnicef 300mg Capsule] 300 mg PO BID #20 cap 07/30/18 Rx Enoxaparin Sodium [Lovenox 30 mg SQ DAILY #30 syringe 07/30/18 Rx 30mg/0.3mL syringe] Ferrous Sulfate [Ferrous Sulfate 325 mg PO TID #90 tablet 07/30/18 Rx 325mg Tablet] Torsemide [Demadex 20mg tablet] 20 mg PO BID #60 tablet 07/30/18 Rx Prescriptions/Medication Reconciliation: New Amlodipine Besylate [Norvasc 5mg tablet] 5 mg PO DAILY #30 tablet Carvedilol [Coreg 6.25mg Tablet] 6.25 mg PO BID #60 tablet Cefdinir [Omnicef 300mg Capsule] 300 mg PO BID #20 cap Enoxaparin Sodium [Lovenox 30mg/0.3mL syringe] 30 mg SQ DAILY #30 syringe Ferrous Sulfate [Ferrous Sulfate 325mg Tablet] 325 mg PO TID #90 tablet Torsemide [Demadex 20mg tablet] 20 mg PO BID #60 tablet Continue Tamsulosin HCl [Flomax 0.4mg capsule] 0.4 mg PO DAILY Polyethylene Glycol 3350 [Miralax 17gm Packet] 17 gm PO DAILY Pantoprazole Sodium [Protonix 40mg tablet] 40 mg PO HS Hydralazine HCl 100 mg PO TID Guanfacine HCl 0.5 mg PO DAILY Gabapentin [Gabapentin 100mg Cap] 200 mg PO HS Fluticasone Propionate [Flonase 50mcg nasal spray 16gm] 2 spr NS BID Flaxseed Oil 1,000 mg PO DAILY Cyanocobalamin (Vitamin B-12) [Vitamin B-12] 100 mcg PO DAILY Rosuvastatin Calcium [Crestor] 5 mg PO HS Multivit-Min/FA/Lycopen/Lutein [Centrum Silver Tablet] 1 each PO DAILY Aspirin [Aspirin 81mg EC Tab] 81 mg PO DAILY Cholecalciferol (Vitamin D3) [Vitamin D3 1,000 Unit Tab] 2,000 unit PO DAILY metOLazone [metOLazone 2.5mg Tablet] 2.5 mg PO DAILY Calcium Acetate [Phoslo 667mg capsule] 1,334 mg PO TIDWM glipiZIDE [Glipizide ER] 5 mg PO DAILY Discontinued Ferrous Sulfate [Ferrous Sulfate 325mg Tablet] 325 mg PO DAILY Torsemide [Demadex] 60 mg PO DAILY Carvedilol [Carvedilol 3.125mg Tab] 3.125 mg PO BID Doxycycline Hyclate [Vibra-Tab 100mg tablet] 100 mg PO BID
--- NOTE | 2018-07-30 08:30 | Progress Note ---
Internal Medicine - PN: Subj *Date: 07/30/18 *Time: 08:28 Interval history: Patient states he is feeling a little bit better this morning. He still has a cough and some shortness of breath. He ate all of his breakfast and he slept well last night. Exam Vital signs and Labs for Last 24 Hours: Temp Pulse Resp BP Pulse Ox 98.0 F 67 18 158/81 H 96 07/30/18 08:00 07/30/18 08:00 07/30/18 08:00 07/30/18 08:00 07/30/18 08:00 Laboratory Results - last 24 hr 07/29/18 16:00: POC Glucose 182 H 07/29/18 21:47: POC Glucose 160 H 07/30/18 07:11: POC Glucose 133 H I & O for Last 24 hours: Intake & Output 07/27/18 07/28/18 07/29/18 07/30/18 11:59 11:59 11:59 11:59 Intake Total 4050 / 4050 2254 / 2254 840 / 840 1180 / 1180 Output Total 0 / 0 350 / 350 Balance 4050 / 4050 2254 / 2254 840 / 840 830 / 830 Weight 229 lb 3 oz 228 lb 9 oz 227 lb Microbiology Reports for the Last 24 Hours: Microbiology 07/29/18 08:30 Sputum - Expectorated Sputum Gram Stain - Final 07/29/18 08:30 Sputum - Expectorated Sputum Sputum Culture - Final - Constitutional no acute distress - *Routine Respiratory Exam Present: rhonchi (bilaterally) - *Routine Cardiovascular Exam Present: RRR - *Routine Abdominal Exam Present: soft, normoactive bowel sounds. Absent: tenderness - *Routine Extremities Exam Absent: cyanosis, clubbing, edema Assessment and Plan (1) Melena Current visit: Yes Status: Acute Category: Medical Code(s): K92.1 - Melena (2) Anemia Current visit: Yes Status: Acute Category: Medical Code(s): D64.9 - Anemia, unspecified (3) Pneumonia Current visit: Yes Status: Acute Category: Medical Code(s): J18.9 - Pneumonia, unspecified organism (4) History of GI bleed Current visit: Yes Status: Chronic Category: Medical Code(s): Z87.19 - Personal history of other diseases of the digestive system (5) Chronic renal impairment, stage 4 (severe) Current visit: Yes Status: Chronic Category: Medical Code(s): N18.4 - Chronic kidney disease, stage 4 (severe) (6) Hypertension Current visit: Yes Status: Chronic Category: Medical Code(s): I10 - Essential (primary) hypertension (7) Hyperlipidemia Current visit: Yes Status: Chronic Category: Medical Code(s): E78.5 - Hyperlipidemia, unspecified (8) Type 2 diabetes mellitus Current visit: Yes Status: Chronic Category: Medical Code(s): E11.9 - Type 2 diabetes mellitus without complications (9) Arteriovenous malformation of colon with hemorrhage Current visit: Yes Status: Acute Category: Medical Code(s): K55.21 - Angiodysplasia of colon with hemorrhage (10) Bilateral pleural effusion Current visit: Yes Status: Acute Category: Medical Code(s): J90 - Pleural effusion, not elsewhere classified - Assessment and plan all Dx Assessment and Plan for all problems:: Patient is improving. Will discuss possible disposition with Dr. rbewer.
== END 2018-07-30 13:12 | DRG 193 ==
LOC: ER 11:07 → 2ND 11:07
PROVIDERS: ADMIT Emergency Medicine; ATTEND Family Medicine
CPT/HCPCS: 36415; 71010; 71020; 71045; 71046; 71250; 72170; 73080; 73130; 80048; 80053; 82962; 85007; 85014; 85018; 85025; 86850; 87205; 94640; 97110; 97116; 97162; 97530; 99285; J0456; P9016

== ENCOUNTER 2018-08-16 07:54 | Inpatient (IN) ==
--- NOTE | 2018-08-16 08:28 | Emergency Department Note ---
ED Disposition Clinical Impression: A-fib, Bed sore on ankle, left, unstageable, Dehydration, Acute on chronic renal insufficiency, Lingular pneumonia, CHF (congestive heart failure) Disposition: Still a Patient Condition on Discharge: Fair Referrals: Provider,Referral, [Referring] - - Critical Care Critical Care Time: No Attestation: On 08/16/18, the high probability of a clinically significant, sudden or life threatening deterioration of the following system(s) required my full and direct attention, intervention and personal management. The time I documented below is in addition to time spent performing reported procedures but includes the following listed in this critical care notation. Medical Decision Making - Inocente Inquiry Pt receiving controlled substance: No Inocente was queried for this patient: No Vital Signs: 08/16/18 08:01 08/16/18 08:29 08/16/18 09:16 Temperature 98.5 F Temperature Source Oral Pulse Rate [Apical] 63 108 H 120 H Respiratory Rate 24 24 Blood Pressure [Right Arm] 168/105 H 176/70 H 158/73 H Blood Pressure Mean [Right Arm] 126 105 101 Blood Pressure Source [Right Arm] Automatic Cuff Automatic Cuff Automatic Cuff Blood Pressure Position [Right Arm] Sitting Supine Sitting 02 Sat by Pulse Oximetry 92 L 95 94 L Oxygen Delivery Method Room Air Room Air Room Air - Lab Data Lab Results 08/16/18 08:06: WBC 7.7, RBC 3.09 L, Hgb 9.3 L, Hct 28.1 L, MCV 90.9, MCH 30.0, MCHC 33.0, RDW 16.4, Plt Count 196, MPV 8.7, Neut % (Auto) 74.0, Lymph % (Auto) 16.6, [place] % (Auto) 4.8, Eos % (Auto) 4.1, Baso % (Auto) 0.5, Neut # (Auto) 5.7, Lymph # (Auto) 1.3, [place] # (Auto) 0.4, Eos # (Auto) 0.3, Baso # (Auto) 0.0 08/16/18 08:06: Sodium 136, Potassium 3.8, Chloride 98, Carbon Dioxide 29, Anion Gap 12.8, BUN 109 H*, Creatinine 3.56 H, Estimated Creat Clear 20, Estimated GFR 16 L*, Est GFR ( Amer) 20 L, Glucose 88, Calcium 9.5, Total Bilirubin 0.8, AST 39 H, ALT 64, Alkaline Phosphatase 152 H, Total Protein 7.4, Albumin 3.3 L, Globulin 4.1 H, Albumin/Globulin Ratio 0.8 L 08/16/18 08:06: Lactate 0.4 08/16/18 08:06: PT 12.1 H, INR 1.18 H, APTT 33.3 08/16/18 08:06: Magnesium 2.3 H Result diagrams: 08/16/18 08:06 08/16/18 08:06 Orders (Tests/Meds): ED MEDICATIONS Discontinued Medications Generic Name Dose Route Start Last Admin Trade Name Freq PRN Reason Stop Dose Admin Sodium Chloride 500 mls @ 999 mls/hr 08/16/18 08:30 08/16/18 08:31 Sod Chlor 0.9% 1000ml Bag IV 08/16/18 09:00 999 mls/hr .Q31M KAMILA Administration ORDERS Category Date Time Status CT head/brain wo con Stat Cat Scan 08/16/18 08:23 Taken Chest XR -- portable [XR chest portable] Stat Exams 08/16/18 07:58 Taken Drug Screen,Urine Stat Lab 08/16/18 08:23 Ordered Urinalysis and Microscopic Stat Lab 08/16/18 08:23 Ordered Blood Culture Stat Micro 08/16/18 09:01 Received Arterial Blood Gas Stat RT 08/16/18 08:23 Ordered - Radiology Data #1 Image(s): Chest Image Reviewed: Yes I reviewed the patient's radiology image, Yes I discussed the image results w/the radiologist, Yes I have reviewed radiologist's interpretation Preliminary Findings: Abnormal The patient underwent chest x-ray that was positive for lingular and left lower lobe infiltrates. I called and discussed with Dr. Puga who reviewed his prior chest x-ray and CT scan from July 2018. - CT Data CT Scan: Head Time Received: 09:[address] Reviewed: Yes: I have reviewed the patient's CT results, I discussed the CT results w/the radiologist, I have viewed the radiologist's interpretation Preliminary Findings: Abnormal Findings Narrative: Head CT scan: is positive for brain atrophy no bleed. - ECG Data Tracing #1 Atrial fibrillation 59/min with slow ventricular response, low voltage, incomplete left bundle branch block, no acute. Unable to locate an old EKG for comparison. ECG initial impression date: 08/16/18 ECG initial impression time: 08:20 Medical Decision Narrative: I discussed this case with Dr. Acosta was covering for Dr. Carrasquillo. After reviewing his most recent discharge summary we decided the patient will start on Levaquin 500 mg IV daily and continue maintenance fluid at normal saline 75 an hour repeat labs in the morning. Altered Mental Status HPI - General Stated Complaint: fever, elevated BP, confusion Time Seen by Provider: 08/16/18 08:10 - History of Present Illness HPI narrative: 88 years old white male with multiple medical problems including history of AVM of the brain, CHF, atrial fibrillation's, and hypertension. He is on daily Lovenox and is on metolazone 2.5 mg a day in addition to torsemide 60 mg daily and torsemide 20 mg 3 times daily. Today he was sent from the halfway with the chief complaint of low-grade temperature of 100.5 and confusion. Upon arrival the patient is alert and oriented x3 his temperature was 98.5 and oxygen saturation of 94% on room air. He denies the complaint of chest pain, abdominal pain, headache, neck pain or back pain. By inspection the patient's has a dry tongue, a deep cough, venous stasis of both lower extremities and a bolus lesion over the left heel. MD complaint: confusion Onset (ago): minute(s) Timing confirmed by: caregiver Context: recent fever Associated symptoms: denies other symptoms - Related Data Home Medications Medication Instructions Recorded Confirmed Aspirin [Aspirin 81mg EC Tab] 81 mg PO DAILY 03/20/18 07/24/18 Cholecalciferol (Vitamin D3) 2,000 unit PO DAILY 03/20/18 07/24/18 [Vitamin D3 1,000 Unit Tab] Cyanocobalamin (Vitamin B-12) 100 mcg PO DAILY 03/20/18 07/24/18 [Vitamin B-12] Flaxseed Oil 1,000 mg PO DAILY 03/20/18 07/24/18 Fluticasone Propionate [Flonase 2 spr NS BID 03/20/18 07/24/18 50mcg nasal spray 16gm] Gabapentin [Gabapentin 100mg Cap] 200 mg PO HS 03/20/18 07/24/18 Guanfacine HCl 0.5 mg PO DAILY 03/20/18 07/24/18 Hydralazine HCl 100 mg PO TID 03/20/18 07/24/18 Multivit-Min/FA/Lycopen/Lutein 1 each PO DAILY 03/20/18 07/24/18 [Centrum Silver Tablet] Pantoprazole Sodium [Protonix 40mg 40 mg PO HS 03/20/18 07/24/18 tablet] Polyethylene Glycol 3350 [Miralax 17 gm PO DAILY 03/20/18 07/24/18 17gm Packet] Rosuvastatin Calcium [Crestor] 5 mg PO HS 03/20/18 07/24/18 Tamsulosin HCl [Flomax 0.4mg 0.4 mg PO DAILY 03/20/18 07/24/18 capsule] glipiZIDE [Glipizide ER] 5 mg PO DAILY 03/20/18 07/24/18 Calcium Acetate [Phoslo 667mg 1,334 mg PO TIDWM 07/24/18 07/24/18 capsule] metOLazone [metOLazone 2.5mg 2.5 mg PO DAILY 07/24/18 07/24/18 Tablet] Previous Rx's Medication Instructions Recorded Amlodipine Besylate [Norvasc 5mg 5 mg PO DAILY #30 tablet 07/30/18 tablet] Carvedilol [Coreg 6.25mg 6.25 mg PO BID #60 tablet 07/30/18 Tablet] Cefdinir [Omnicef 300mg Capsule] 300 mg PO BID #20 cap 07/30/18 Enoxaparin Sodium [Lovenox 30 mg SQ DAILY #30 syringe 07/30/18 30mg/0.3mL syringe] Ferrous Sulfate [Ferrous Sulfate 325 mg PO TID #90 tablet 07/30/18 325mg Tablet] Torsemide [Demadex 20mg tablet] 20 mg PO BID #60 tablet 07/30/18 Allergies Allergy/AdvReac Type Severity Reaction Status Date / Time lisinopril Allergy Swelling Verified 03/20/18 08:44 of Lip/Tongue/Throat [facility] History - Hepatitis A Screen Attestation statement:: This patient has been screened for Hepatitis A risk factors. I have reviewed the patient's past medical history: Yes (I reviewed his halfway records including prior diagnoses and medicatio) Medical History: Reports:: Atrial Fibrillation, BPH, Congestive Heart Failure, Diabetes Mellitus Type 2 (with gastroparesis), Gastroesophageal Reflux Disease(GERD), Gastrointestinal Bleed, Hyperlipidemia, Hypertension Denies:: Cancer, Diabetes Mellitus Type 1, Internal Pacemaker, MRSA Other Medical History: Reports: Anemia Laterality Cases: Bilateral: Tonsillectomy Other Surgeries: Yes: Cholecystectomy, Colonoscopy, EGD. No: Pacemaker Amputation: No Fractures: No - Social History Smoking Status: Former smoker # Packs/Day (cigarettes): 1 Alcohol Intake: never Occupational Status: other Household Members: children Family Hx:: Hypertension ROS Obtained: Yes All systems reviewed & no additional complaints Physical Exam - General General appearance: alert, in no apparent distress - Head Head exam: atraumatic, normocephalic, normal inspection - Eye Eye exam: Present: normal appearance, PERRL, EOMI. Absent: scleral icterus, nystagmus - ENT ENT exam: Present: normal exam, normal oropharynx, mucous membranes dry, TM's normal bilaterally, normal external ear exam - Neck Neck exam: Present: normal inspection, full ROM, trachea midline. Absent: tenderness, meningismus, lymphadenopathy - Chest Chest inspection: Present: normal inspection, symmetric chest wall rise. Absent: tenderness - Respiratory Respiratory exam: Present: normal lung sounds bilaterally. Absent: respiratory distress, wheezes - Cardiovascular Cardiovascular exam: Present: irregular rhythm, normal heart sounds. Absent: JVD - Abdominal Exam Abdominal exam: Present: soft, normal bowel sounds, other (Strong equal bilateral femoral pulse. ). Absent: distention, tenderness, guarding, rebound, rigidity, Botello's sign, tenderness at McBurney's Point - exam: Present: normal inspection, normal testicular lie, circumcised. Absent: testicular tenderness, urethral discharge, scrotal swelling - Extremities Exam Extremities exam: Present: full ROM, normal capillary refill. Absent: pedal edema, calf tenderness - Back Exam Back exam: Present: normal inspection. 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 ) - Psychiatric Psychiatric exam: Present: normal affect, normal mood - Skin Skin exam: Present: warm, dry, intact, normal color - Lymphatic Lymphatic Findings: no adenopathy
[2018-08-16 08:30] LABS: Basophils % 0.5 % (0.1-2.0); Eosinophils # 0.3 K/mm3 (0.0-0.4); Eosinophils % 4.1 % (0.1-12.0); Hematocrit 28.1 % (42.0-52.0); Hemoglobin 9.3 g/dL (14.1-18.0); Lymphocytes # 1.3 K/mm3 (0.7-4.5); Lymphocytes % 16.6 % (10-50); Mean Corpuscular Volume 90.9 fl (80-94); Mean Platelet Volume 8.7 fl (7.4-10.4); Monocytes # 0.4 K/mm3 (0.1-1.0); Monocytes % 4.8 % (1.7-9.3); Neutrophils # 5.7 K/mm3 (1.8-7.8); Platelet Count 196 K/mm3 (142-424); Red Blood Count 3.09 M/mm3 (4.60-6.20); Red Cell Distribution Width 16.4 % (11.5-17.5); White Blood Count 7.7 K/mm3 (4.8-10.8)
[2018-08-16 08:37] LABS: Activated Partial Thrombo Time 33.3 seconds (23.6-34.0); INR 1.18 (0.9-1.1); Prothrombin Time 12.1 seconds (9.4-11.8)
[2018-08-16 08:38] LABS: Albumin Level 3.3 gm/dL (3.4-5.0); Albumin/Globulin Ratio 0.8 (1.1-1.8); Anion Gap 12.8 mEq/L (5-15); Bilirubin,Total 0.8 mg/dL (0.2-1.0); Calcium 9.5 mg/dL (8.5-10.1); Globulin 4.1 gm/dl (1.3-3.2); Potassium 3.8 mmoL/L (3.5-5.1); Total Protein,Serum 7.4 gm/dL (6.4-8.2)
[2018-08-16 09:45] LABS: ABG Base Excess 4.7 mmol/L (-2.4-2.3); ABG HCO3 27.4 mmhg (22.0-26.0); ABG Oxygen Saturation 94 % (90-100); ABG PCO2 33.7 mmhg (35.0-45.0); ABG PH 7.53 mmol/L (7.35-7.45); ABG TCO2 28.4 mmhg (23-27)
[2018-08-16 09:49] LABS: Allen's Test Acceptable; Oxygen 21 %
[2018-08-16 10:11] LABS: Microscopic, Urine URINE MICROSCOPIC (MICROSCOPIC)
[2018-08-16 10:13] LABS: Appearance,Urine CLEAR (Clear); Bilirubin,Urine Negative (Negative); Blood, Urine TRACE-L (Negative); Color,Urine YELLOW (Yellow); Glucose,Urine (UA) Negative (Negative); Ketones,Urine Negative (Negative); Leukocyte Esterase,Urine Negative (Negative); Protein,Urine 2+ (Negative); Urobilinogen,Urine 0.2 EU/dl (0.2)
[2018-08-16 10:16] LABS: RBC,Urine Occasional #/hpf (0-3); Squamous Epithelial Cell,Urine Occasional #/hpf (0-5)
[2018-08-16 10:17] LABS: WBC,Urine Occasional #/hpf (0-3)
--- NOTE | 2018-08-16 11:26 | Progress Note ---
Internal Medicine - PN: Subj *Date: 08/16/18 *Time: 11:23 Interval history: Patient admitted this morning with dehydration, acute on chronic renal insuff. and pneumonia. Exam Vital signs and Labs for Last 24 Hours: Temp Pulse Resp BP Pulse Ox 98.2 F 60 18 163/67 H 95 08/16/18 11:16 08/16/18 11:16 08/16/18 11:16 08/16/18 11:16 08/16/18 11:16 Laboratory Results - last 24 hr 08/16/18 08:06: WBC 7.7, RBC 3.09 L, Hgb 9.3 L, Hct 28.1 L, MCV 90.9, MCH 30.0, MCHC 33.0, RDW 16.4, Plt Count 196, MPV 8.7, Neut % (Auto) 74.0, Lymph % (Auto) 16.6, [place] % (Auto) 4.8, Eos % (Auto) 4.1, Baso % (Auto) 0.5, Neut # (Auto) 5.7, Lymph # (Auto) 1.3, [place] # (Auto) 0.4, Eos # (Auto) 0.3, Baso # (Auto) 0.0 08/16/18 08:06: Sodium 136, Potassium 3.8, Chloride 98, Carbon Dioxide 29, Anion Gap 12.8, BUN 109 H*, Creatinine 3.56 H, Estimated Creat Clear 20, Estimated GFR 16 L*, Est GFR ( Amer) 20 L, Glucose 88, Calcium 9.5, Total Bilirubin 0.8, AST 39 H, ALT 64, Alkaline Phosphatase 152 H, Total Protein 7.4, Albumin 3.3 L, Globulin 4.1 H, Albumin/Globulin Ratio 0.8 L 08/16/18 08:06: Lactate 0.4 08/16/18 08:06: PT 12.1 H, INR 1.18 H, APTT 33.3 08/16/18 08:06: Magnesium 2.3 H 08/16/18 08:23: Specimen Source Right radial, O2 % 21, ABG pH 7.53 H, ABG pCO2 33.7 L, ABG pO2 65.0 L, ABG HCO3 27.4 H, ABG Total CO2 28.4 H, ABG O2 Saturation 94, ABG Base Excess 4.7 H, Edgar Test Acceptable 08/16/18 09:31: Urine Color Yellow, Urine Appearance Clear, Urine pH 8.0, Ur Specific [place] 1.020, Urine Protein 2+, Urine Glucose (UA) Negative, Urine Ketones Negative, Urine Blood Trace-l, Urine Nitrate Negative, Urine Bilirubin Negative, Urine Urobilinogen 0.2, Ur Leukocyte Esterase Negative, Urine RBC Occasional, Urine WBC Occasional, Ur Squamous Epith Cells Occasional I & O for Last 24 hours: Intake & Output 08/13/18 08/14/18 08/15/18 08/16/18 23:59 23:59 23:59 23:59 Intake Total 500 / 500 Balance 500 / 500 Weight 206 lb 7 oz - Constitutional no acute distress - *Routine Cardiovascular Exam Present: RRR - *Routine Skin Exam Present: warm. Absent: rash Comments: Left heel with a soft, adriana area, lateral side of right ankle with a open wound present - *Routine Neurological Exam Present: alert Assessment and Plan (1) A-fib Current visit: Yes Status: Acute Category: Medical Code(s): I48.91 - Unspecified atrial fibrillation (2) Acute on chronic renal insufficiency Current visit: Yes Status: Acute Category: Medical Code(s): N28.9 - Disorder of kidney and ureter, unspecified; N18.9 - Chronic kidney disease, unspecified (3) Bed sore on ankle, left, unstageable Current visit: Yes Status: Acute Category: Medical Code(s): L89.520 - Pressure ulcer of left ankle, unstageable (4) CHF (congestive heart failure) Current visit: Yes Status: Acute Category: Medical Code(s): I50.9 - Heart failure, unspecified (5) Dehydration Current visit: Yes Status: Acute Category: Medical Code(s): E86.0 - Dehydration (6) Lingular pneumonia Current visit: Yes Status: Acute Category: Medical Code(s): J18.9 - Pneumonia, unspecified organism (7) Anemia Current visit: No Status: Acute Category: Medical Code(s): D64.9 - Anemia, unspecified (8) Muscular deconditioning Current visit: No Status: Acute Category: Medical Code(s): R29.898 - Other symptoms and signs involving the musculoskeletal system (9) Type 2 diabetes mellitus Current visit: No Status: Chronic Category: Medical Code(s): E11.9 - Type 2 diabetes mellitus without complications - Assessment and plan all Dx Assessment and Plan for all problems:: Levaquin started for pneumonia, cont. IVF at 75 mL/hr, hold Glipizide for now, monitor blood sugars, will consult PT for wound management
[2018-08-17 06:47] LABS: Basophils % 0.2 % (0.1-2.0); Eosinophils # 0.2 K/mm3 (0.0-0.4); Eosinophils % 2.4 % (0.1-12.0); Hematocrit 27.6 % (42.0-52.0); Hemoglobin 9.1 g/dL (14.1-18.0); Lymphocytes % 10.8 % (10-50); Mean Corpuscular HGB Conc 32.9 g/dL (31.8-35.4); Mean Corpuscular Hemoglobin 30.3 pg (27.0-31.2); Mean Corpuscular Volume 91.8 fl (80-94); Mean Platelet Volume 8.4 fl (7.4-10.4); Monocytes # 0.4 K/mm3 (0.1-1.0); Monocytes % 4.5 % (1.7-9.3); Neutrophils # 7.2 K/mm3 (1.8-7.8); Platelet Count 209 K/mm3 (142-424); Red Cell Distribution Width 16.6 % (11.5-17.5); White Blood Count 8.8 K/mm3 (4.8-10.8)
[2018-08-17 06:58] LABS: Anion Gap 12.8 mEq/L (5-15); Calcium 9.1 mg/dL (8.5-10.1); Potassium 3.8 mmoL/L (3.5-5.1)
--- NOTE | 2018-08-17 07:27 | Pharmacy Consult Notes ---
[facility] Pharmacy VTE Monitoring - Patient Demographics Admission date: 08/16/18 Report Date: 08/17/18 Time: 07:27 Allergies/Adverse Reactions: Patient Allergies lisinopril Allergy (Verified 03/20/18 08:44) Swelling of Lip/Tongue/Throat Height: 1.65 m Weight: 96.729 kg Patient Problems: Current Active Problems (Updated 08/16/18 @ 11:27 by Mandeep Acosta MD) A-fib (Acute) Bed sore on ankle, left, unstageable (Acute) Dehydration (Acute) Acute on chronic renal insufficiency (Acute) Lingular pneumonia (Acute) CHF (congestive heart failure) (Acute) - VTE Risk Labs: VTE Related Lab Results Hgb 9.1 g/dL (14.1-18.0) L 08/17/18 05:53 Hct 27.6 % (42.0-52.0) L 08/17/18 05:53 Plt Count 209 K/mm3 (142-424) 08/17/18 05:53 PT 12.1 seconds (9.4-11.8) H 08/16/18 08:06 INR 1.18 (0.9-1.1) H 08/16/18 08:06 APTT 33.3 seconds (23.6-34.0) 08/16/18 08:06 BUN 98 mg/dL (7-18) H 08/17/18 05:53 Creatinine 3.47 mg/dL (0.70-1.30) H 08/17/18 05:53 Estimated Creat Clear 21 mL/min (50-200) 08/17/18 05:53 Was VTE Risk Assessment Performed: Yes VTE Score: 4 VTE Risk Level: Low Risk Clinical Trial Participant: No - Prophylaxis VTE Prophylaxis Ordered?: Yes Location of Applied Device: Not Applicable Pharmacologic Type: Enoxaparin
--- NOTE | 2018-08-17 08:58 | History & Physical Report ---
*Admission Date: 08/16/18 *Chief complaint: Fever; altered mental status *History of present illness: Mr. 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 Patient was transported via ambulance from [facility] to [facility] due to altered mental status and fever. Patient does not recall yesterday and is a poor historian. With evaluation in the emergency room patient was found to be in renal failure, dehydrated, and to have pneumonia. He was thus admitted for further evaluation and treatment. This a.m. patient is feeling okay. He is somewhat short of breath at times. He has coughing spasms. He denies heart pains. He states he is eating without any problems. Note patient has chronic renal failure stage IV. He was originally on torsemide 20 mg 3 times daily and Zaroxolyn 2.5 mg daily. This was changed to furosemide 20 mg twice daily and he remained on Zaroxolyn 2.5 mg daily when he went to [facility]. With repeat labs after discharge from [facility] BUN was 78, creatinine was 3.6. Therefore torsemide was decreased to 20 mg daily. Repeat BMP was pending. [facility] History Medical History: Reports:: Arrhythmia, Atrial Fibrillation, BPH, Congestive Heart Failure, Diabetes Mellitus Type 2, Gastroesophageal Reflux Disease(GERD), Gastrointestinal Bleed, Hyperlipidemia, Hypertension, Peripheral Vascular Disease, Transient Ischemic Attacks (TIA) Denies:: Cancer, Diabetes Mellitus Type 1, Internal Pacemaker, MRSA *Have you ever received a pneumonia vaccine?: Yes *Have you received a flu vaccine this season?: Yes Other Medical History: Reports: Anemia Laterality Cases: Bilateral: Tonsillectomy Other Surgeries: Yes: Cholecystectomy, Colonoscopy, EGD. No: Pacemaker Amputation: No Fractures: No Comment: Right shoulder replacement 2016 - *Social History Smoking Status: Former smoker # Packs/Day (cigarettes): 1 Alcohol Intake: never *Occupational Status:: other Household Members: children *Travel in the last 8 weeks: None - Psychiatric History Expresses thoughts of harming self/others: None Suicide Plan Description: No Plan Family Hx:: Hypertension Review of Systems - Constitutional Denies headache(s) - ENT Denies ear pain, Denies sore throat - *Cardiovascular Reports shortness of breath, Reports shortness of breath with activity, Reports irregular heart rhythm, Denies chest pain - *Respiratory Reports chest congestion, Reports cough (States he has coughing spasms), Reports shortness of breath, Reports shortness of breath with activity - *Gastrointestinal Denies abdominal pain, Denies constipation, Denies loose stools, Denies heartburn, Denies nausea, Denies vomiting - *Genitourinary Denies difficulty urinating - *Musculoskeletal Reports muscle weakness, Denies joint pain Comments: Patient has not been walking. He has wounds on his left heel and a wound on his right outer ankle as boots on both feet. - *Neurologic Reports weakness, Denies headache(s) Meds Home Medications Medication Instructions Recorded Confirmed Type Aspirin [Aspirin 81mg EC Tab] 81 mg PO DAILY 03/20/18 08/16/18 History Cholecalciferol (Vitamin D3) 2,000 unit PO DAILY 03/20/18 08/16/18 History [Vitamin D3 1,000 Unit Tab] Cyanocobalamin (Vitamin B-12) 100 mcg PO DAILY 03/20/18 08/16/18 History [Vitamin B-12] Flaxseed Oil 1,000 mg PO DAILY 03/20/18 08/16/18 History Fluticasone Propionate [Flonase 2 spr NS BID 03/20/18 08/16/18 History 50mcg nasal spray 16gm] Gabapentin [Gabapentin 100mg Cap] 200 mg PO HS 03/20/18 08/16/18 History Guanfacine HCl 0.5 mg PO DAILY 03/20/18 08/16/18 History Hydralazine HCl 100 mg PO TID 03/20/18 08/16/18 History Multivit-Min/FA/Lycopen/Lutein 1 each PO DAILY 03/20/18 08/16/18 History [Centrum Silver Tablet] Pantoprazole Sodium [Protonix 40mg 40 mg PO HS 03/20/18 08/16/18 History tablet] Polyethylene Glycol 3350 [Miralax 17 gm PO DAILY 03/20/18 08/16/18 History 17gm Packet] Rosuvastatin Calcium [Crestor] 5 mg PO HS 03/20/18 08/16/18 History Tamsulosin HCl [Flomax 0.4mg 0.4 mg PO HS 03/20/18 08/16/18 History capsule] glipiZIDE [Glipizide ER] 5 mg PO DAILY 03/20/18 08/16/18 History Calcium Acetate [Phoslo 667mg 1,334 mg PO TIDWM 07/24/18 08/16/18 History capsule] Acetaminophen [Acetaminophen Extra 1,000 mg PO Q6HP PRN 08/16/18 08/16/18 Histo ry Strength] Amlodipine Besylate [Norvasc 5mg 5 mg PO DAILY 08/16/18 08/16/18 History tablet] Carvedilol [Coreg 6.25mg 6.25 mg PO BID 08/16/18 08/16/18 History Tablet] Enoxaparin Sodium [Lovenox 30 mg SQ DAILY 08/16/18 08/16/18 History 30mg/0.3mL syringe] Epoetin Frankie [Procrit] 40,000 unit IJ WEEKLY 08/16/18 08/16/18 History Ferrous Sulfate [Ferrous Sulfate 325 mg PO TID 08/16/18 08/16/18 History 325mg Tablet] Torsemide [Demadex 20mg tablet] 20 mg PO DAILY 08/16/18 08/16/18 History Allergies Allergy/AdvReac Type Severity Reaction Status Date / Time lisinopril Allergy Swelling Verified 03/20/18 08:44 of Lip/Tongue/Throat Exam Vital signs and Labs for Last 24 Hours: Temp Pulse Resp BP Pulse Ox 98.2 F 66 16 134/63 93 L 08/17/18 08:00 08/17/18 08:00 08/17/18 08:00 08/17/18 08:00 08/17/18 08:00 Laboratory Results - last 24 hr 08/16/18 08:23: Specimen Source Right radial, O2 % 21, ABG pH 7.53 H, ABG pCO2 33.7 L, ABG pO2 65.0 L, ABG HCO3 27.4 H, ABG Total CO2 28.4 H, ABG O2 Saturation 94, ABG Base Excess 4.7 H, Edgar Test Acceptable 08/16/18 09:31: Urine Color Yellow, Urine Appearance Clear, Urine pH 8.0, Ur Specific [place] 1.020, Urine Protein 2+, Urine Glucose (UA) Negative, Urine Ketones Negative, Urine Blood Trace-l, Urine Nitrate Negative, Urine Bilirubin Negative, Urine Urobilinogen 0.2, Ur Leukocyte Esterase Negative, Urine RBC Occasional, Urine WBC Occasional, Ur Squamous Epith Cells Occasional 08/16/18 12:15: POC Glucose 82 08/16/18 21:13: POC Glucose 115 H 08/17/18 05:53: WBC 8.8, RBC 3.00 L, Hgb 9.1 L, Hct 27.6 L, MCV 91.8, MCH 30.3, MCHC 32.9, RDW 16.6, Plt Count 209, MPV 8.4, Neut % (Auto) 82.0 H, Lymph % (Auto) 10.8, [place] % (Auto) 4.5, Eos % (Auto) 2.4, Baso % (Auto) 0.2, Neut # (Auto) 7.2, Lymph # (Auto) 1.0, [place] # (Auto) 0.4, Eos # (Auto) 0.2, Baso # (Auto) 0.0 08/17/18 05:53: Sodium 137, Potassium 3.8, Chloride 100, Carbon Dioxide 28, Anion Gap 12.8, BUN 98 H, Creatinine 3.47 H, Estimated Creat Clear 21, Estimated GFR 17 L*, Est GFR ( Amer) 20 L, Glucose 98, Calcium 9.1, Magnesium 2.1 08/17/18 05:56: POC Glucose 104 I & O for Last 24 hours: Intake & Output 08/14/18 08/15/18 08/16/18 08/17/18 11:59 11:59 11:59 11:59 Intake Total 500 / 500 1875 / 1875 Output Total 200 / 200 Balance 500 / 500 1675 / 1675 Weight 206 lb 7 oz 213 lb 4 oz Radiology Reports for the Last 24 Hours: 08/16/2018 chest x-ray ... IMPRESSION....... 1. Left basilar airspace disease & small left pleural effusion- partially obscuring left hemidiaphragm. Although slightly improved since 07/26/2018, significant density persists at left lung base. This left basilar density reflects combination of atelectasis, pleural effusion; and suspect minimal infiltrate at left base as well 2. On the second PCXR image, note possible subtle wispy infiltrate right infrahilar region extending towards medial right lung base. Correlation required. Head CT 08/16/2018 --------IMPRESSION 1. No discrete acute intracranial findings. No hemorrhage. No mass effect. No good evidence of acute infarct evident 2. Prominent diffuse cerebral atrophy. . Minimal focal atrophy posterior left cerebellum most likely account for minimal low-density here. 3.. Calcified carotid siphons bilaterally. Slight generous caliber right MCA origin most likely reflecting ectasia in this older patient.. 4. History of AVM Is given but I see no discrete findings of such on this noncontrast. CT. 5. Generous left mastoid effusion noted-with opacification of left mastoid tip and posterior mastoid air cells. Superior left mastoid air cells are clear. Left middle ear clear. - Constitutional no acute distress Comments: Sitting up in the bed and appears comfortable - *Routine HEENT Exam Head: Present: normocephalic, atraumatic Eye: Present: PERRL. Absent: conjunctival icterus, scleral injection - *Routine Neck Exam Absent: carotid bruit, lymphadenopathy, thyromegaly - *Routine Respiratory Exam Comments: . Diminished breath sounds on the left. Distant wheezing audible on the right. - *Routine Cardiovascular Exam Present: irregular rhythm - *Routine Abdominal Exam Present: soft, normoactive bowel sounds. Absent: tenderness, distended - *Routine Extremities Exam Absent: edema - *Routine Skin Exam Comments: Dressing over left heel and right ankle is intact. - *Routine Neurological Exam Present: alert Oriented to name. Assessment and Plan (1) A-fib Current visit: Yes Status: Acute Category: Medical Code(s): I48.91 - Unspecified atrial fibrillation (2) Acute on chronic renal insufficiency Current visit: Yes Status: Acute Category: Medical Code(s): N28.9 - Disorder of kidney and ureter, unspecified; N18.9 - Chronic kidney disease, unspecified (3) Bed sore on ankle, left, unstageable Current visit: Yes Status: Acute Category: Medical Code(s): L89.520 - Pressure ulcer of left ankle, unstageable (4) CHF (congestive heart failure) Current visit: Yes Status: Acute Category: Medical Code(s): I50.9 - Heart failure, unspecified (5) Dehydration Current visit: Yes Status: Acute Category: Medical Code(s): E86.0 - Dehydration (6) Lingular pneumonia Current visit: Yes Status: Acute Category: Medical Code(s): J18.9 - Pneumonia, unspecified organism (7) Anemia Current visit: No Status: Acute Category: Medical Code(s): D64.9 - Anemia, unspecified (8) Muscular deconditioning Current visit: No Status: Acute Category: Medical Code(s): R29.898 - Other symptoms and signs involving the musculoskeletal system (9) Type 2 diabetes mellitus Current visit: No Status: Chronic Category: Medical Code(s): E11.9 - Type 2 diabetes mellitus without complications - Assessment and plan all Dx Assessment and Plan for all problems:: Continue with gentle hydration. Continue with Levaquin for his pneumonia. We will add ag arce.
[2018-08-18 07:17] LABS: Basophils % 0.1 % (0.1-2.0); Eosinophils # 0.3 K/mm3 (0.0-0.4); Eosinophils % 3.5 % (0.1-12.0); Hematocrit 25.9 % (42.0-52.0); Hemoglobin 8.4 g/dL (14.1-18.0); Lymphocytes % 13.8 % (10-50); Mean Corpuscular HGB Conc 32.6 g/dL (31.8-35.4); Mean Corpuscular Hemoglobin 30.1 pg (27.0-31.2); Mean Corpuscular Volume 92.3 fl (80-94); Mean Platelet Volume 8.3 fl (7.4-10.4); Monocytes # 0.4 K/mm3 (0.1-1.0); Monocytes % 5.1 % (1.7-9.3); Neutrophils # 5.8 K/mm3 (1.8-7.8); Neutrophils % 77.5 % (37.0-80.0); Platelet Count 201 K/mm3 (142-424); Red Blood Count 2.81 M/mm3 (4.60-6.20); Red Cell Distribution Width 17.1 % (11.5-17.5); White Blood Count 7.5 K/mm3 (4.8-10.8)
[2018-08-18 07:18] LABS: Anion Gap 13.8 mEq/L (5-15); Calcium 8.7 mg/dL (8.5-10.1); Potassium 3.8 mmoL/L (3.5-5.1)
--- NOTE | 2018-08-18 08:59 | Progress Note ---
Internal Medicine - PN: Subj *Date: 08/18/18 *Time: 09:07 Interval history: Patient indicates that he is feeling fine. He states he is short of breath with certain activities. He states the cough is less frequent. He is eating without problems. Blood pressure was consistently elevated. Exam Vital signs and Labs for Last 24 Hours: Temp Pulse Resp BP Pulse Ox 99.0 F 59 L 16 182/70 H 95 08/18/18 08:00 08/18/18 08:00 08/18/18 08:00 08/18/18 08:00 08/18/18 08:00 Laboratory Results - last 24 hr 08/17/18 08:37: POC Glucose 165 H 08/17/18 21:45: POC Glucose 172 H 08/18/18 05:54: WBC 7.5, RBC 2.81 L, Hgb 8.4 L, Hct 25.9 L, MCV 92.3, MCH 30.1, MCHC 32.6, RDW 17.1, Plt Count 201, MPV 8.3, Neut % (Auto) 77.5, Lymph % (Auto) 13.8, [place] % (Auto) 5.1, Eos % (Auto) 3.5, Baso % (Auto) 0.1, Neut # (Auto) 5.8, Lymph # (Auto) 1.0, [place] # (Auto) 0.4, Eos # (Auto) 0.3, Baso # (Auto) 0.0 08/18/18 05:54: Sodium 140, Potassium 3.8, Chloride 103, Carbon Dioxide 27, Anion Gap 13.8, BUN 98 H, Creatinine 3.48 H, Estimated Creat Clear 21, Estimated GFR 17 L*, Est GFR ( Amer) 20 L, Glucose 101, Calcium 8.7 I & O for Last 24 hours: Intake & Output 08/15/18 08/16/18 08/17/18 08/18/18 11:59 11:59 11:59 11:59 Intake Total 500 / 500 1875 / 1875 171 / 1711 Output Total 200 / 200 Balance 500 / 500 1675 / 1675 171 / 1711 Weight 206 lb 7 oz 213 lb 4 oz 217 lb 3 oz Microbiology Reports for the Last 24 Hours: Microbiology 08/16/18 08:06 Blood Blood Culture - Preliminary NO GROWTH AFTER 48 HOURS - Constitutional no acute distress Comments: Sitting up in the bed has completed his breakfast. He ate everything on his tray. - *Routine Respiratory Exam Comments: Decreased breath sounds on the left posteriorly. - *Routine Cardiovascular Exam Present: irregular rhythm - *Routine Abdominal Exam Present: soft, normoactive bowel sounds. Absent: tenderness - *Routine Extremities Exam Absent: edema, calf tenderness - *Routine Skin Exam Comments: Dressing on right and left foot wounds are clean and dry. - *Routine Neurological Exam Present: alert Disoriented Assessment and Plan (1) A-fib Current visit: Yes Status: Acute Category: Medical Code(s): I48.91 - Unspecified atrial fibrillation (2) Acute on chronic renal insufficiency Current visit: Yes Status: Acute Category: Medical Code(s): N28.9 - Disorder of kidney and ureter, unspecified; N18.9 - Chronic kidney disease, unspecified (3) Bed sore on ankle, left, unstageable Current visit: Yes Status: Acute Category: Medical Code(s): L89.520 - Pressure ulcer of left ankle, unstageable (4) CHF (congestive heart failure) Current visit: Yes Status: Acute Category: Medical Code(s): I50.9 - Heart failure, unspecified (5) Dehydration Current visit: Yes Status: Acute Category: Medical Code(s): E86.0 - Dehydration (6) Lingular pneumonia Current visit: Yes Status: Acute Category: Medical Code(s): J18.9 - Pneumonia, unspecified organism (7) Anemia Current visit: No Status: Acute Category: Medical Code(s): D64.9 - Anemia, unspecified (8) Muscular deconditioning Current visit: No Status: Acute Category: Medical Code(s): R29.898 - Other symptoms and signs involving the musculoskeletal system (9) Type 2 diabetes mellitus Current visit: No Status: Chronic Category: Medical Code(s): E11.9 - Type 2 diabetes mellitus without complications - Assessment and plan all Dx Assessment and Plan for all problems:: Increase carvedilol to 3 times daily. Will decrease IV fluids to 50 an hour. Continue with duo nebs and antibiotics for his pneumonia.
[2018-08-19 06:46] LABS: Basophils % 0.3 % (0.1-2.0); Eosinophils # 0.2 K/mm3 (0.0-0.4); Eosinophils % 2.9 % (0.1-12.0); Hematocrit 25.6 % (42.0-52.0); Hemoglobin 8.4 g/dL (14.1-18.0); Lymphocytes # 1.3 K/mm3 (0.7-4.5); Lymphocytes % 15.4 % (10-50); Mean Corpuscular HGB Conc 32.7 g/dL (31.8-35.4); Mean Corpuscular Hemoglobin 30.3 pg (27.0-31.2); Mean Corpuscular Volume 92.6 fl (80-94); Mean Platelet Volume 8.4 fl (7.4-10.4); Monocytes # 0.5 K/mm3 (0.1-1.0); Monocytes % 5.8 % (1.7-9.3); Neutrophils # 6.2 K/mm3 (1.8-7.8); Neutrophils % 75.7 % (37.0-80.0); Platelet Count 190 K/mm3 (142-424); Red Blood Count 2.77 M/mm3 (4.60-6.20); Red Cell Distribution Width 17.5 % (11.5-17.5); White Blood Count 8.2 K/mm3 (4.8-10.8)
[2018-08-19 06:56] LABS: Anion Gap 16.1 mEq/L (5-15); Calcium 8.8 mg/dL (8.5-10.1); Potassium 4.1 mmoL/L (3.5-5.1)
--- NOTE | 2018-08-19 08:14 | Progress Note ---
Internal Medicine - PN: Subj *Date: 08/19/18 *Time: 08:11 Interval history: Selected Entries 08/18/18 08:00 Blood Pressure [Left Arm] 182/70 H Laboratory Tests 08/16/18 08/17/18 08/17/18 08:06 05:53 05:53 WBC 8.8 RBC 3.00 L Hgb 9.1 L Hct 27.6 L MCV MCH MCHC RDW Plt Count 209 Sodium 136 137 Potassium 3.8 3.8 Chloride 98 100 Carbon Dioxide 29 28 Anion Gap 12.8 BUN 109 H* 98 H Creatinine 3.56 H 3.47 H Estimated Creat Clear Estimated GFR 16 L* 17 L* Glucose 88 Calcium 9.5 9.1 Magnesium 2.1 AST 39 H ALT 64 Alkaline Phosphatase 152 H 08/18/18 08/18/18 08/19/18 05:54 05:54 02:38 WBC 7.5 8.2 RBC 2.81 L 2.77 L Hgb 8.4 L 8.4 L Hct 25.9 L 25.6 L MCV 92.3 92.6 MCH 30.3 MCHC 32.7 RDW 17.5 Plt Count 190 Sodium 140 Potassium 3.8 Chloride 103 Carbon Dioxide 27 Anion Gap 13.8 BUN 98 H Creatinine 3.48 H Estimated Creat Clear 21 Estimated GFR 17 L* Glucose Calcium Magnesium AST ALT Alkaline Phosphatase 08/19/18 02:38 WBC RBC Hgb Hct MCV MCH MCHC RDW Plt Count Sodium 140 Potassium 4.1 Chloride 103 Carbon Dioxide 25 Anion Gap 16.1 H BUN 95 H Creatinine 3.38 H Estimated Creat Clear Estimated GFR 17 L* Glucose 108 H Calcium 8.8 Magnesium AST ALT Alkaline Phosphatase Patient states he is feeling okay today. Shortness of breath with exertion. Denies pain. He does eat well. He states his bowels have moved. Nurses note that he had a choking episode after taking pills. Care management notes reviewed. Exam Vital signs and Labs for Last 24 Hours: Temp Pulse Resp BP Pulse Ox 99.6 F 58 L 18 162/79 H 92 L 08/19/18 08:00 08/19/18 08:00 08/19/18 08:00 08/19/18 08:00 08/19/18 08:00 Laboratory Results - last 24 hr 08/18/18 09:07: POC Glucose 149 H 08/18/18 21:50: POC Glucose 123 H 08/19/18 02:38: WBC 8.2, RBC 2.77 L, Hgb 8.4 L, Hct 25.6 L, MCV 92.6, MCH 30.3, MCHC 32.7, RDW 17.5, Plt Count 190, MPV 8.4, Neut % (Auto) 75.7, Lymph % (Auto) 15.4, [place] % (Auto) 5.8, Eos % (Auto) 2.9, Baso % (Auto) 0.3, Neut # (Auto) 6.2, Lymph # (Auto) 1.3, [place] # (Auto) 0.5, Eos # (Auto) 0.2, Baso # (Auto) 0.0 08/19/18 02:38: Sodium 140, Potassium 4.1, Chloride 103, Carbon Dioxide 25, Anion Gap 16.1 H, BUN 95 H, Creatinine 3.38 H, Estimated Creat Clear 22, Estimated GFR 17 L*, Est GFR ( Amer) 21 L, Glucose 108 H, Calcium 8.8 I & O for Last 24 hours: Intake & Output 08/16/18 08/17/18 08/18/18 08/19/18 11:59 11:59 11:59 11:59 Intake Total 500 / 500 1974 1711 / 1711 1320 / 1320 Output Total 200 / 200 Balance 500 / 500 1775 / 1775 1711 / 1711 1320 / 1320 Weight 206 lb 7 oz 213 lb 4 oz 217 lb 3 oz 215 lb 3 oz Microbiology Reports for the Last 24 Hours: Microbiology 08/16/18 09:01 Blood Blood Culture - Preliminary NO GROWTH AFTER 48 HOURS 08/16/18 08:06 Blood Blood Culture - Preliminary NO GROWTH AFTER 48 HOURS - Constitutional no acute distress Comments: Sitting up in the bed checking his messages on his phone. - *Routine Respiratory Exam Comments: Improved air movement in left base. Right lobe sound clear posteriorly - *Routine Cardiovascular Exam Present: irregular rhythm - *Routine Abdominal Exam Present: soft, normoactive bowel sounds. Absent: tenderness - *Routine Extremities Exam Comments: Right outer ankle wound without dressing. Appears to be smaller. Dressing on left heel clean and dry. - *Routine Neurological Exam Present: alert Assessment and Plan (1) A-fib Current visit: Yes Status: Acute Category: Medical Code(s): I48.91 - Unspecified atrial fibrillation (2) Acute on chronic renal insufficiency Current visit: Yes Status: Acute Category: Medical Code(s): N28.9 - Disorder of kidney and ureter, unspecified; N18.9 - Chronic kidney disease, unspecified (3) Bed sore on ankle, left, unstageable Current visit: Yes Status: Acute Category: Medical Code(s): L89.520 - Pressure ulcer of left ankle, unstageable (4) CHF (congestive heart failure) Current visit: Yes Status: Acute Category: Medical Code(s): I50.9 - Heart failure, unspecified (5) Dehydration Current visit: Yes Status: Acute Category: Medical Code(s): E86.0 - Dehydration (6) Lingular pneumonia Current visit: Yes Status: Acute Category: Medical Code(s): J18.9 - Pneumonia, unspecified organism (7) Anemia Current visit: No Status: Acute Category: Medical Code(s): D64.9 - Anemia, unspecified (8) Muscular deconditioning Current visit: No Status: Acute Category: Medical Code(s): R29.898 - Other symptoms and signs involving the musculoskeletal system (9) Type 2 diabetes mellitus Current visit: No Status: Chronic Category: Medical Code(s): E11.9 - Type 2 diabetes mellitus without complications - Assessment and plan all Dx Assessment and Plan for all problems:: Discussed with nurse to maintain protective dressing on right ankle. We will repeat chest x-ray today. Eating and drinking well. Will saline lock IV. Blood pressure seems to be a little bit better today. We will continue with ag arce and Levaquin. Swallowing evaluation ordered
--- NOTE | 2018-08-19 08:46 | Progress Note ---
Internal Medicine - PN: Subj *Date: 08/19/18 *Time: 08:45 Exam Vital signs and Labs for Last 24 Hours: Temp Pulse Resp BP Pulse Ox 99.6 F 58 L 18 162/79 H 92 L 08/19/18 08:00 08/19/18 08:00 08/19/18 08:00 08/19/18 08:00 08/19/18 08:00 Laboratory Results - last 24 hr 08/18/18 09:07: POC Glucose 149 H 08/18/18 21:50: POC Glucose 123 H 08/19/18 02:38: WBC 8.2, RBC 2.77 L, Hgb 8.4 L, Hct 25.6 L, MCV 92.6, MCH 30.3, MCHC 32.7, RDW 17.5, Plt Count 190, MPV 8.4, Neut % (Auto) 75.7, Lymph % (Auto) 15.4, [place] % (Auto) 5.8, Eos % (Auto) 2.9, Baso % (Auto) 0.3, Neut # (Auto) 6.2, Lymph # (Auto) 1.3, [place] # (Auto) 0.5, Eos # (Auto) 0.2, Baso # (Auto) 0.0 08/19/18 02:38: Sodium 140, Potassium 4.1, Chloride 103, Carbon Dioxide 25, Anion Gap 16.1 H, BUN 95 H, Creatinine 3.38 H, Estimated Creat Clear 22, Estimated GFR 17 L*, Est GFR ( Amer) 21 L, Glucose 108 H, Calcium 8.8 08/19/18 07:57: POC Glucose 137 H I & O for Last 24 hours: Intake & Output 08/16/18 08/17/18 08/18/18 08/19/18 23:59 23:59 23:59 23:59 Intake Total 1476 / 1476 2710 / 2710 360 / 360 960 / 960 Output Total 200 / 200 Balance 1276 / 1276 2710 / 2710 360 / 360 960 / 960 Weight 93.638 kg 96.729 kg 98.515 kg 97.607 kg Microbiology Reports for the Last 24 Hours: Microbiology 08/16/18 09:01 Blood Blood Culture - Preliminary NO GROWTH AFTER 48 HOURS 04/28/19 08:06 Blood Blood Culture - Preliminary NO GROWTH AFTER 48 HOURS Assessment and Plan (1) A-fib Current visit: Yes Status: Acute Category: Medical Code(s): I48.91 - Unspecified atrial fibrillation (2) Acute on chronic renal insufficiency Current visit: Yes Status: Acute Category: Medical Code(s): N28.9 - Disorder of kidney and ureter, unspecified; N18.9 - Chronic kidney disease, unspecified (3) Bed sore on ankle, left, unstageable Current visit: Yes Status: Acute Category: Medical Code(s): L89.520 - Pressure ulcer of left ankle, unstageable (4) CHF (congestive heart failure) Current visit: Yes Status: Acute Category: Medical Code(s): I50.9 - Heart failure, unspecified (5) Dehydration Current visit: Yes Status: Acute Category: Medical Code(s): E86.0 - Dehydration (6) Lingular pneumonia Current visit: Yes Status: Acute Category: Medical Code(s): J18.9 - Pneumonia, unspecified organism (7) Anemia Current visit: No Status: Acute Category: Medical Code(s): D64.9 - Anemia, unspecified (8) Muscular deconditioning Current visit: No Status: Acute Category: Medical Code(s): R29.898 - Other symptoms and signs involving the musculoskeletal system (9) Type 2 diabetes mellitus Current visit: No Status: Chronic Category: Medical Code(s): E11.9 - Type 2 diabetes mellitus without complications The patient's infection will respond to the chosen ABx?: Yes Is the patient receiving the right drug, dose, and route?: Yes Could a more targeted ABx be ordered?: No
--- NOTE | 2018-08-20 08:36 | Progress Note ---
Internal Medicine - PN: Subj *Date: 08/20/18 *Time: 08:33 Interval history: Patient denies any pain today. He states he slept well throughout the night. He says he ate some breakfast this morning. Exam Vital signs and Labs for Last 24 Hours: Temp Pulse Resp BP Pulse Ox 98.8 F 60 16 182/62 H 95 08/20/18 08:00 08/20/18 08:00 08/20/18 08:00 08/20/18 08:00 08/20/18 08:00 Laboratory Results - last 24 hr 08/19/18 20:34: POC Glucose 173 H 08/20/18 08:00: POC Glucose 133 H I & O for Last 24 hours: Intake & Output 08/17/18 08/18/18 08/19/18 08/20/18 11:59 11:59 11:59 11:59 Intake Total 1974 / 1974 1711 / 1711 1320 / 1320 1607 / 1607 Output Total 200 / 200 Balance 1775 / 1775 1711 / 1711 1320 / 1320 1607 / 1607 Weight 213 lb 4 oz 217 lb 3 oz 215 lb 3 oz 216 lb 3 oz Radiology Reports for the Last 24 Hours: CXR Worsening bilateral lower lobe pneumonia with small left effusion.. - Constitutional no acute distress - *Routine Respiratory Exam Present: rhonchi (bibasilar) - *Routine Cardiovascular Exam Present: irregular rhythm - *Routine Abdominal Exam Present: soft, normoactive bowel sounds. Absent: tenderness - *Routine Extremities Exam Present: edema (heels with pressure pillows in place) Assessment and Plan (1) A-fib Current visit: Yes Status: Acute Category: Medical Code(s): I48.91 - Unspecified atrial fibrillation (2) Acute on chronic renal insufficiency Current visit: Yes Status: Acute Category: Medical Code(s): N28.9 - Disorder of kidney and ureter, unspecified; N18.9 - Chronic kidney disease, unspecified (3) Bed sore on ankle, left, unstageable Current visit: Yes Status: Acute Category: Medical Code(s): L89.520 - Pressure ulcer of left ankle, unstageable (4) CHF (congestive heart failure) Current visit: Yes Status: Acute Category: Medical Code(s): I50.9 - Heart failure, unspecified (5) Dehydration Current visit: Yes Status: Acute Category: Medical Code(s): E86.0 - Dehydration (6) Lingular pneumonia Current visit: Yes Status: Acute Category: Medical Code(s): J18.9 - Pneumonia, unspecified organism (7) Anemia Current visit: No Status: Acute Category: Medical Code(s): D64.9 - Anemia, unspecified (8) Muscular deconditioning Current visit: No Status: Acute Category: Medical Code(s): R29.898 - Other symptoms and signs involving the musculoskeletal system (9) Type 2 diabetes mellitus Current visit: No Status: Chronic Category: Medical Code(s): E11.9 - Type 2 diabetes mellitus without complications - Assessment and plan all Dx Assessment and Plan for all problems:: Chest x-ray shows worsening pneumonia. We will recheck labs this morning. Dr. Carrasquillo likely to debride the patient's heel this morning.
[2018-08-20 09:47] LABS: Basophils % 0.1 % (0.1-2.0); Eosinophils # 0.4 K/mm3 (0.0-0.4); Eosinophils % 4.9 % (0.1-12.0); Hematocrit 26.1 % (42.0-52.0); Hemoglobin 8.5 g/dL (14.1-18.0); Lymphocytes % 13.3 % (10-50); Mean Corpuscular HGB Conc 32.7 g/dL (31.8-35.4); Mean Corpuscular Hemoglobin 30.4 pg (27.0-31.2); Mean Corpuscular Volume 93.1 fl (80-94); Mean Platelet Volume 8.2 fl (7.4-10.4); Monocytes # 0.4 K/mm3 (0.1-1.0); Neutrophils # 5.7 K/mm3 (1.8-7.8); Neutrophils % 76.6 % (37.0-80.0); Platelet Count 179 K/mm3 (142-424); Red Cell Distribution Width 17.6 % (11.5-17.5); White Blood Count 7.4 K/mm3 (4.8-10.8)
[2018-08-20 09:51] LABS: Albumin Level 2.9 gm/dL (3.4-5.0); Albumin/Globulin Ratio 0.7 (1.1-1.8); Anion Gap 16.7 mEq/L (5-15); Calcium 8.9 mg/dL (8.5-10.1); Potassium 3.7 mmoL/L (3.5-5.1); Total Protein,Serum 6.9 gm/dL (6.4-8.2)
--- NOTE | 2018-08-20 10:19 | Progress Note ---
Internal Medicine - PN: Subj *Date: 08/20/18 *Time: 10:16 Interval history: PROCEDURE NOTE: Debridement The left heel was prepped with Betadine. The blister which was about 6 cm in diameter was deroofed. Underneath is some healing skin but also an area of ecchymotic tissue. Sterile dressing was placed. The patient tolerated the procedure well. Exam Vital signs and Labs for Last 24 Hours: Temp Pulse Resp BP Pulse Ox 98.8 F 69 16 182/62 H 95 08/20/18 08:00 08/20/18 09:54 08/20/18 08:00 08/20/18 08:00 08/20/18 08:00 Laboratory Results - last 24 hr 08/19/18 20:34: POC Glucose 173 H 08/20/18 08:00: POC Glucose 133 H 08/20/18 09:05: WBC 7.4, RBC 2.80 L, Hgb 8.5 L, Hct 26.1 L, MCV 93.1, MCH 30.4, MCHC 32.7, RDW 17.6 H, Plt Count 179, MPV 8.2, Neut % (Auto) 76.6, Lymph % (Auto) 13.3, [place] % (Auto) 5.0, Eos % (Auto) 4.9, Baso % (Auto) 0.1, Neut # (Auto) 5.7, Lymph # (Auto) 1.0, [place] # (Auto) 0.4, Eos # (Auto) 0.4, Baso # (Auto) 0.0 08/20/18 09:05: Sodium 140, Potassium 3.7, Chloride 103, Carbon Dioxide 24, Anion Gap 16.7 H, BUN 91 H, Creatinine 3.25 H, Estimated Creat Clear 23, Estimated GFR 18 L*, Est GFR ( Amer) 22 L, Glucose 129 H, Calcium 8.9, Total Bilirubin 1.0, AST 20, ALT 37, Alkaline Phosphatase 126 H, Total Protein 6.9, Albumin 2.9 L, Globulin 4.0 H, Albumin/Globulin Ratio 0.7 L I & O for Last 24 hours: Intake & Output 08/17/18 08/18/18 08/19/18 08/20/18 11:59 11:59 11:59 11:59 Intake Total 1974 1711 / 1711 1320 / 1320 1607 / 1607 Output Total 200 / 200 Balance 1775 / 1775 1710 / 1710 1320 / 1320 1607 / 1607 Weight 213 lb 4 oz 217 lb 3 oz 215 lb 3 oz 216 lb 3 oz Assessment and Plan (1) A-fib Current visit: Yes Status: Acute Category: Medical Code(s): I48.91 - Unspecified atrial fibrillation (2) Acute on chronic renal insufficiency Current visit: Yes Status: Acute Category: Medical Code(s): N28.9 - Disorder of kidney and ureter, unspecified; N18.9 - Chronic kidney disease, unspecified (3) Bed sore on ankle, left, unstageable Current visit: Yes Status: Acute Category: Medical Code(s): L89.520 - Pressure ulcer of left ankle, unstageable (4) CHF (congestive heart failure) Current visit: Yes Status: Acute Category: Medical Code(s): I50.9 - Heart failure, unspecified (5) Dehydration Current visit: Yes Status: Acute Category: Medical Code(s): E86.0 - Dehydration (6) Lingular pneumonia Current visit: Yes Status: Acute Category: Medical Code(s): J18.9 - Pneumonia, unspecified organism (7) Anemia Current visit: No Status: Acute Category: Medical Code(s): D64.9 - Anemia, unspecified (8) Muscular deconditioning Current visit: No Status: Acute Category: Medical Code(s): R29.898 - Other symptoms and signs involving the musculoskeletal system (9) Type 2 diabetes mellitus Current visit: No Status: Chronic Category: Medical Code(s): E11.9 - Type 2 diabetes mellitus without complications (10) Encounter for debridement of skin Current visit: Yes Status: Acute Category: Medical
--- NOTE | 2018-08-21 08:31 | Progress Note ---
Internal Medicine - PN: Subj *Date: 08/21/18 *Time: 08:27 Interval history: Patient states he is feeling well this morning. He denies any pain other than in his heels and feet. He states he slept well and ate breakfast this morning. Exam Vital signs and Labs for Last 24 Hours: Temp Pulse Resp BP Pulse Ox 98.7 F 54 L 20 172/58 H 94 L 08/21/18 04:00 08/21/18 06:14 08/21/18 04:00 08/21/18 04:00 08/21/18 04:00 Laboratory Results - last 24 hr 08/20/18 09:05: WBC 7.4, RBC 2.80 L, Hgb 8.5 L, Hct 26.1 L, MCV 93.1, MCH 30.4, MCHC 32.7, RDW 17.6 H, Plt Count 179, MPV 8.2, Neut % (Auto) 76.6, Lymph % (Auto) 13.3, [place] % (Auto) 5.0, Eos % (Auto) 4.9, Baso % (Auto) 0.1, Neut # (Auto) 5.7, Lymph # (Auto) 1.0, [place] # (Auto) 0.4, Eos # (Auto) 0.4, Baso # (Auto) 0.0 08/20/18 09:05: Sodium 140, Potassium 3.7, Chloride 103, Carbon Dioxide 24, Anion Gap 16.7 H, BUN 91 H, Creatinine 3.25 H, Estimated Creat Clear 23, Estimated GFR 18 L*, Est GFR ( Amer) 22 L, Glucose 129 H, Calcium 8.9, Total Bilirubin 1.0, AST 20, ALT 37, Alkaline Phosphatase 126 H, Total Protein 6.9, Albumin 2.9 L, Globulin 4.0 H, Albumin/Globulin Ratio 0.7 L 08/20/18 22:41: POC Glucose 153 H I & O for Last 24 hours: Intake & Output 08/18/18 08/19/18 08/20/18 08/21/18 11:59 11:59 11:59 11:59 Intake Total 1711 / 1711 1420 / 1420 1607 / 1607 240 / 240 Balance 1711 / 1711 1420 / 1420 1607 / 1607 240 / 240 Weight 217 lb 3 oz 215 lb 3 oz 216 lb 3 oz 116 lb 13.52 oz Microbiology Reports for the Last 24 Hours: Microbiology 08/16/18 08:06 Blood Blood Culture - Final NO GROWTH AFTER 5 DAYS - Constitutional no acute distress - *Routine Respiratory Exam Present: rhonchi - *Routine Cardiovascular Exam Present: RRR, irregular rhythm - *Routine Abdominal Exam Present: soft, normoactive bowel sounds. Absent: tenderness - *Routine Extremities Exam Present: edema (bilateral LE edema). Absent: cyanosis, clubbing Assessment and Plan (1) A-fib Current visit: Yes Status: Acute Category: Medical Code(s): I48.91 - Unspecified atrial fibrillation (2) Acute on chronic renal insufficiency Current visit: Yes Status: Acute Category: Medical Code(s): N28.9 - Disorder of kidney and ureter, unspecified; N18.9 - Chronic kidney disease, unspecified (3) Bed sore on ankle, left, unstageable Current visit: Yes Status: Acute Category: Medical Code(s): L89.520 - Pressure ulcer of left ankle, unstageable (4) CHF (congestive heart failure) Current visit: Yes Status: Acute Category: Medical Code(s): I50.9 - Heart failure, unspecified (5) Dehydration Current visit: Yes Status: Acute Category: Medical Code(s): E86.0 - Dehydration (6) Lingular pneumonia Current visit: Yes Status: Acute Category: Medical Code(s): J18.9 - Pneumonia, unspecified organism (7) Anemia Current visit: No Status: Acute Category: Medical Code(s): D64.9 - Anemia, unspecified (8) Muscular deconditioning Current visit: No Status: Acute Category: Medical Code(s): R29.898 - Other symptoms and signs involving the musculoskeletal system (9) Type 2 diabetes mellitus Current visit: No Status: Chronic Category: Medical Code(s): E11.9 - Type 2 diabetes mellitus without complications (10) Encounter for debridement of skin Current visit: Yes Status: Acute Category: Medical - Assessment and plan all Dx Assessment and Plan for all problems:: Patient had heel debridement yesterday by Dr. brewer. He is improving and his H&H is stable. He did have trouble swallowing a pill with his modified barium swallow but it was otherwise unremarkable. Will discuss further care with Dr. brewer.
--- NOTE | 2018-08-21 11:26 | Discharge Summary ---
General - General Admission date:: 08/16/18 Discharge date: 08/21/18 HPI HPI: Mr. 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 Patient was transported via ambulance from [facility] to [facility] due to altered mental status and fever. Patient does not recall yesterday and is a poor historian. With evaluation in the emergency room patient was found to be in renal failure, dehydrated, and to have pneumonia. He was thus admitted for further evaluation and treatment. This a.m. patient is feeling okay. He is somewhat short of breath at times. He has coughing spasms. He denies heart pains. He states he is eating without any problems. Note patient has chronic renal failure stage IV. He was originally on torsemide 20 mg 3 times daily and Zaroxolyn 2.5 mg daily. This was changed to furosemide 20 mg twice daily and he remained on Zaroxolyn 2.5 mg daily when he went to [facility]. With repeat labs after discharge from [facility] BUN was 78, creatinine was 3.6. Therefore torsemide was decreased to 20 mg daily. Repeat BMP was pending. Hospital Course Hospital Course: The patient's chest x-ray showed a possible wispy right infrahilar infiltrate and possible left basilar infiltrate. He had a CT of the head which showed nothing acute. There was generous left mastoid effusion noted. The patient was started on Levaquin for his pneumonia as well as IV fluids for his renal ins ufficiency. He had some wounds on his heels therefore physical therapy was consulted. Duo nebs were also added. The patient's cough and shortness of breath did improve. His blood pressure was elevated, therefore his IV fluids were decreased and his carvedilol was increased to 3 times daily dosing. He had a repeat chest x-ray on 08/19/2018 which showed worsening bilateral lower lobe pneumonia. He also had a modified barium swallow and had difficulty swallowing a pill, however the test was otherwise unremarkable. The speech therapist felt he would need all of his pills crushed in pudding or pured. The patient began eating and drinking well and was saline locked. His blood pressure improved. He did have heel debridement by Dr. brewer. The patient's blood cultures showed no growth and he was unable to provide a sputum specimen for culture. His mentation did improve and it was felt he was stable to return to a long-term care facility. His H&H was low but was stable. A bed was found for him in [facility] at [facility] He was stable to be discharged on continued antibiotics and will need a CBC and CMP in 1 week. Objective Vital signs: Temp Pulse Resp BP Pulse Ox 99.2 F 64 18 153/60 H 95 08/21/18 08:00 08/21/18 08:00 08/21/18 08:00 08/21/18 08:00 08/21/18 08:00 Narrative: - Constitutional no acute distress Comments: Sitting up in the bed and appears comfortable - *Routine HEENT Exam Head: Present: normocephalic, atraumatic Eye: Present: PERRL. Absent: conjunctival icterus, scleral injection - *Routine Neck Exam Absent: carotid bruit, lymphadenopathy, thyromegaly - *Routine Respiratory Exam Comments: . Diminished breath sounds on the left. Distant wheezing audible on the right. - *Routine Cardiovascular Exam Present: irregular rhythm - *Routine Abdominal Exam Present: soft, normoactive bowel sounds. Absent: tenderness, distended - *Routine Extremities Exam Absent: edema - *Routine Skin Exam Comments: Dressing over left heel and right ankle is intact. - *Routine Neurological Exam Present: alert Oriented to name. Results Labs on day of discharge: Labs from last 24 hours 08/20/18 22:41 POC Glucose 153 H DS: Diagnosis - Discharge Diagnosis (1) A-fib Status: Acute (2) Acute on chronic renal insufficiency Status: Acute (3) Bed sore on ankle, left, unstageable Status: Acute (4) CHF (congestive heart failure) Status: Acute (5) Dehydration Status: Acute (6) Lingular pneumonia Status: Acute (7) Anemia Status: Acute (8) Muscular deconditioning Status: Acute (9) Type 2 diabetes mellitus Status: Chronic (10) Encounter for debridement of skin Status: Acute Discharge Plan - Patient Discharge Instructions Patient Instructions: DI for Dehydration -- Adult, DI for Pneumonia -- Adult, DI for Pressure Sores, Acute Renal Failure, Chronic Renal Failure - Follow up Plan Disposition: er Inpatient Rehab Fac Home Medications: Home Medications Medication Instructions Recorded Confirmed Type Aspirin [Aspirin 81mg EC Tab] 81 mg PO DAILY 03/20/18 08/16/18 History Cholecalciferol (Vitamin D3) 2,000 unit PO DAILY 03/20/18 08/16/18 History [Vitamin D3 1,000 Unit Tab] Cyanocobalamin (Vitamin B-12) 100 mcg PO DAILY 03/20/18 08/16/18 History [Vitamin B-12] Fluticasone Propionate [Flonase 2 spr NS BID 03/20/18 08/16/18 History 50mcg nasal spray 16gm] Gabapentin [Gabapentin 100mg Cap] 200 mg PO TID 03/20/18 08/18/18 History Guanfacine HCl 0.5 mg PO DAILY 03/20/18 08/16/18 History Hydralazine HCl 100 mg PO TIDWM 03/20/18 08/18/18 History Multivit-Min/FA/Lycopen/Lutein 1 each PO DAILY 03/20/18 08/16/18 History [Centrum Silver Tablet] Polyethylene Glycol 3350 [Miralax 17 gm PO DAILY 03/20/18 08/16/18 History 17gm Packet] Rosuvastatin Calcium [Crestor] 5 mg PO HS 03/20/18 08/16/18 History Tamsulosin HCl [Flomax 0.4mg 0.4 mg PO HS 03/20/18 08/16/18 History capsule] glipiZIDE [Glipizide ER] 5 mg PO DAILY 03/20/18 08/16/18 History Calcium Acetate [Phoslo 667mg 1,334 mg PO TIDWM 07/24/18 08/16/18 History capsule] Amlodipine Besylate [Norvasc 5mg 5 mg PO DAILY 08/16/18 08/16/18 History tablet] Enoxaparin Sodium [Lovenox 30 mg SQ DAILY 08/16/18 08/16/18 History 30mg/0.3mL syringe] Epoetin Frankie [Procrit] 40,000 unit IJ WEEKLY 08/16/18 08/16/18 History Ferrous Sulfate [Ferrous Sulfate 325 mg PO TID 08/16/18 08/16/18 History 325mg Tablet] Torsemide [Demadex 20mg tablet] 20 mg PO DAILY 08/16/18 08/16/18 History Acetaminophen [Acetaminophen 325mg 650 mg PO Q4HP PRN tab 08/21/18 Rx tab] Carvedilol [Coreg 6.25mg 6.25 mg PO TID tab 08/21/18 Rx Tablet] Enoxaparin Sodium [Lovenox 30 mg SQ DAILY syringe 08/21/18 Rx 30mg/0.3mL syringe] Ferrous Sulfate [Ferrous Sulfate 325 mg PO TID tab 08/21/18 Rx 325mg Tablet] Ipratropium/Albuterol Sulfate 3 ml IH QIDRT ampul.neb 08/21/18 Rx [Duoneb 3mL neb] levoFLOXacin [Levaquin 250mg 500 mg PO Q48H #5 tab 08/21/18 Rx tab] Prescriptions/Medication Reconciliation: New Carvedilol [Coreg 6.25mg Tablet] 6.25 mg PO TID tab Ipratropium/Albuterol Sulfate [Duoneb 3mL neb] 3 ml IH QIDRT ampul.neb Ferrous Sulfate [Ferrous Sulfate 325mg Tablet] 325 mg PO TID tab Enoxaparin Sodium [Lovenox 30mg/0.3mL syringe] 30 mg SQ DAILY syringe levoFLOXacin [Levaquin 250mg tab] 500 mg PO Q48H #5 tab Acetaminophen [Acetaminophen 325mg tab] 650 mg PO Q4HP PRN tab PRN Reason: As Needed For Fever Or Pain Continued Tamsulosin HCl [Flomax 0.4mg capsule] 0.4 mg PO HS Polyethylene Glycol 3350 [Miralax 17gm Packet] 17 gm PO DAILY Hydralazine HCl 100 mg PO TIDWM Guanfacine HCl 0.5 mg PO DAILY Gabapentin [Gabapentin 100mg Cap] 200 mg PO TID Fluticasone Propionate [Flonase 50mcg nasal spray 16gm] 2 spr NS BID Cyanocobalamin (Vitamin B-12) [Vitamin B-12] 100 mcg PO DAILY Rosuvastatin Calcium [Crestor] 5 mg PO HS Multivit-Min/FA/Lycopen/Lutein [Centrum Silver Tablet] 1 each PO DAILY Aspirin [Aspirin 81mg EC Tab] 81 mg PO DAILY Cholecalciferol (Vitamin D3) [Vitamin D3 1,000 Unit Tab] 2,000 unit PO DAILY Calcium Acetate [Phoslo 667mg capsule] 1,334 mg PO TIDWM Enoxaparin Sodium [Lovenox 30mg/0.3mL syringe] 30 mg SQ DAILY Ferrous Sulfate [Ferrous Sulfate 325mg Tablet] 325 mg PO TID Amlodipine Besylate [Norvasc 5mg tablet] 5 mg PO DAILY glipiZIDE [Glipizide ER] 5 mg PO DAILY Epoetin Frankie [Procrit] 40,000 unit IJ WEEKLY Torsemide [Demadex 20mg tablet] 20 mg PO DAILY Discontinued Pantoprazole Sodium [Protonix 40mg tablet] 40 mg PO HS Flaxseed Oil 1,000 mg PO DAILY Carvedilol [Coreg 6.25mg Tablet] 6.25 mg PO BID Acetaminophen [Acetaminophen Extra Strength] 1,000 mg PO Q6HP PRN PRN Reason: pain/fever
== END 2018-08-21 13:45 | DRG 194 ==
LOC: ER 07:54 → 2ND 07:54
PROVIDERS: ADMIT Family Medicine; ATTEND Family Medicine
CPT/HCPCS: 36415; 70371; 70450; 71010; 71045; 80048; 80053; 81001; 82803; 82962; 83605; 83735; 85025; 85610; 85730; 87040; 92611; 93005; 94640; 94761; 96365; 97110; 97162; 97530; 99285; J1956